=== PATIENT | female | born 1955 | race Caucasian/White ===

== ENCOUNTER 2016-05-13 11:16 | Emergency (ER) | payer BC ==
[2016-05-13] MEDS ORDERED: Potassium Chloride 20 MEQ Tab.ER PO ONE (12:58)
[2016-05-13] MEDS ORDERED: Nitrofurantoin Monohydrate/Macrocrystalline 100 MG Cap PO ONE (12:58)
--- NOTE | 2016-05-13 13:06 | EDM.PDOC ---
ED HPI Skin/Rash - General Chief Complaint: Laceration Stated Complaint: fall Time Seen by Provider: 05/13/16 11:50 Source: Reports: Patient History Limitations: Reports: No limitations - History of Present Illness INITIAL COMMENTS - FREE TEXT/NARRATIVE: Patient woke up feeling like she really had to urinate. Got out of bed and went into bathroom. Says she was a bit dizzy, and when she went to sit down on toilet she was only partway onto seat. She ended up falling off of the toilet and went forward onto the floor. Hit right cheek area in process. Does not remember if she actually passed out but does recall being suddenly on the ground. She was unable to get up off the floor by herself and called EMS for assistance. Has old bruise on top of her head. Denies any acute neuro or vision changes. Does have headache from fall. Reports similar episodes in past with dizziness, last one over a year ago. No other complaints. No recent medication/supplement changes. No recent illnesses. - Related Data Allergies Allergy/AdvReac Type Severity Reaction Status Date / Time prochlorperazine edisylate Allergy Anxiety Verified 05/13/16 11:24 [From Compazine] prochlorperazine maleate Allergy Anxiety Verified 05/13/16 11:24 [From Compazine] sertraline HCl [From Zoloft] Allergy Difficulty Verified 05/13/16 11:24 Breathing mantoux Allergy Rash Uncoded 05/13/16 11:24 Home Meds: Ambulatory Orders Medication Instructions Recorded Confirmed Acetaminophen [Tylenol Extra 500 mg PO QID PRN 05/22/13 05/13/16 Strength] Furosemide [Lasix] 20 mg PO DAILY 05/22/13 05/13/16 Gabapentin [Neurontin] 100 mg PO TID 05/22/13 05/13/16 Insulin Detemir [Levemir] 50 unit SQ BID 05/22/13 05/13/16 Methadone HCl 40 mg PO QID 05/22/13 05/13/16 Potassium Chloride [Klor-Con M20] 20 meq PO DAILY 05/22/13 05/13/16 hydrOXYzine Pamoate [Vistaril] 50 mg PO Q6H PRN 09/07/13 05/13/16 Pantoprazole 20 mg PO BEDTIME 02/08/15 05/13/16 diphenhydrAMINE HCl 25 mg PO TID PRN 02/08/15 05/13/16 [Diphenhydramine HCl] Amitriptyline [Elavil] 100 mg PO BEDTIME 05/08/15 05/13/16 Captopril [Capoten] 12.5 mg PO DAILY 05/08/15 05/13/16 Docusate Sodium [Colace] 100 mg PO BID 05/08/15 05/13/16 Insulin Aspart [NovoLOG] 0 unit SQ WITHMEALSANDBED PRN 05/08/15 05/13/16 Insulin Aspart [NovoLOG] 18 unit SQ BID 05/08/15 05/13/16 Warfarin [Coumadin] 2.5 mg PO SUTUTHSA 05/08/15 05/13/16 Warfarin [Coumadin] 5 mg PO MOWEFR 05/08/15 05/13/16 Nitrofurantoin Bates/Macrocryst 100 mg PO BID #10 cap 05/13/16 [Macrobid] Past Medical History HEENT History: Reports: Impaired vision Cardiovascular History: Reports: Heart Failure, Heart murmur, High cholesterol Respiratory History: Reports: COPD, PE, Other (see below) Gastrointestinal History: Reports: GERD Genitourinary History: Reports: Renal calculus Musculoskeletal History: Reports: Amputation, Osteoarthritis, Other (see below) Neurological History: Reports: Neuropathy, diabetic Psychiatric History: Reports: Anxiety, Depression Endocrine/Metabolic History: Reports: Diabetes, type II, Obesity/BMI 30+, Osteopenia Hematologic History: Reports: Anemia, Anticoagulation therapy, Other (see below) - Infectious Disease History Infectious Disease History: Reports: MRSA - Past Surgical History GI Surgical History: Reports: Cholecystectomy, Other (see below) Social & Family History - Family History Family Medical History: Unobtainable Cardiac: Reports: Hypertension Psychiatric: Reports: Depression Endocrine/Metabolic: Reports: Diabetes, type II, Hypothyroidism - Tobacco Use Smoking Status *Q: Never Smoker Second Hand Smoke Exposure: No - Alcohol Use Days Per Week of Alcohol Use: 0 - Recreational Drug Use Recreational Drug Use: No Recreational Drug Last Use: No caffeine use - Living Situation & Occupation Living situation: Reports: single Occupation: disabled (Secondary to fibromyalgia since 1998) ED ROS GENERAL - Review of Systems Review Of Systems: See Below Constitutional: Reports: no symptoms HEENT: Reports: Other (right cheek swollen). Denies: Dental pain, Ear pain, Eye pain, Nosebleed, Nose pain Respiratory: Reports: No Symptoms Cardiovascular: Reports: No symptoms. Denies: Chest pain GI/Abdominal: Reports: No symptoms : Reports: no symptoms. Denies: dysuria, flank pain, frequency, hematuria, pain, urgency Musculoskeletal: Reports: no symptoms. Denies: neck pain, joint swelling Skin: Reports: other (abrasion/small cut from glasses right cheek) Neurological: Reports: Dizziness (see HPI), Headache, Other (no other acute changes). Denies: Numbness, Paresthesia Psychiatric: Reports: No symptoms Hematologic/Lymphatic: Reports: no symptoms ED EXAM, SKIN/RASH Exam: See Below Exam Limited By: No limitations General Appearance: alert, WD/WN, moderate distress Eye Exam: bilateral eye: EOMI, normal inspection, PERRL, other (no noted nystagmus) Ears: normal external exam, normal canal, hearing grossly normal, normal TMs Nose: normal inspection, normal mucosa, no blood Throat/Mouth: Normal inspection, Normal lips, Normal voice, No airway compromise , Other (dentures) Head: facial swelling (right cheek), facial tenderness (right cheek) Neck: normal inspection, supple, non-tender, full range of motion Respiratory/Chest: no respiratory distress, lungs clear, normal breath sounds, no accessory muscle use, chest non-tender Cardiovascular: normal peripheral pulses, regular rate, rhythm, no edema, systolic murmur (faint) Peripheral Pulses: 2+: radial (L), radial (R) GI/Abdominal: normal bowel sounds, soft, non tender, no distention (Female) Exam: Deferred Rectal (Female) Exam: Deferred Back Exam: normal inspection. No: muscle spasm, paraspinal tenderness, vertebral tenderness Extremities: normal inspection, normal range of motion, non-tender, no pedal edema, normal capillary refill Neurological: alert, oriented, CN II-XII intact, normal cognition, no motor/ sensory deficits Psychiatric: normal affect, normal mood Skin: Warm, Dry, Normal color, Other (abrasion and very superficial skin laceration noted on face) Location, Skin: face Course - Vital Signs Last Recorded V/S: Last Vital Signs Temp 36.8 C 05/13/16 13:16 Pulse 97 05/13/16 13:16 Resp 20 05/13/16 13:16 BP 106/65 05/13/16 13:16 Pulse Ox 99 05/13/16 13:16 - Orders/Labs/Meds Orders: Active Orders 24 hr Category Date Time Status Head wo Cont [CT] Stat Exams 05/13/16 12:01 Taken CULTURE URINE [RM] Routine Lab 05/13/16 12:27 Received Labs: Laboratory Tests 05/13/16 05/13/16 05/13/16 Range/Units 12:08 12:08 12:08 WBC 7.1 (4.0-10.2) K/uL RBC 4.98 (3.77-5.09) M/uL Hgb 13.5 (11.7-15.5) g/dL Hct 40.2 (34.0-46.0) % MCV 80.7 L (84.0-98.0) fL MCH 27.1 L (28.2-33.3) pg MCHC 33.6 (31.7-36.0) g/dL RDW 12.5 (11.2-14.1) % Plt Count 251 (150-350) K/uL Neut % (Auto) 68.2 (45.0-80.0) % Lymph % (Auto) 22.9 (10.0-50.0) % Bates % (Auto) 6.5 (2.0-14.0) % Eos % (Auto) 1.8 (0.0-5.0) % Baso % (Auto) 0.6 (0.0-2.0) % Neut # 4.83 (1.40-7.00) K/uL Lymph # 1.62 (0.50-3.50) K/uL Bates # 0.46 (0.00-1.00) K/uL Eos # 0.13 (0.00-0.50) K/uL Baso # 0.04 (0.00-0.20) K/uL PT 47.1 H D (9.8-11.7) SEC INR 4.1 Sodium 138 (136-145) mmol/L Potassium 3.4 L (3.5-5.1) mmol/L Chloride 96 L (98-107) mmol/L Carbon Dioxide 33.1 H (21.0-32.0) mmol/L BUN 35 H (7-18) mg/dL Creatinine 1.02 (0.51-1.17) mg/dL Est Cr Clr Drug Dosing 57.04 mL/min Estimated GFR (MDRD) 55 mL/min Glucose 187 H (74-106) mg/dL Calcium 9.9 (8.5-10.1) mg/dL Total Bilirubin 0.3 (0.2-1.0) mg/dL AST 12 L (15-37) U/L ALT 23 (12-78) U/L Alkaline Phosphatase 120 H (46-116) IU/L Total Protein 8.2 (6.4-8.2) g/dL Albumin 3.6 (3.4-5.0) g/dL Specimen Type Urine Color Urine Appearance Urine pH (5.0-9.0) Ur Specific [place] (1.005-1.030) Urine Protein (NEGATIVE) mg/dL Urine Glucose (UA) (NEGATIVE) mg/dL Urine Ketones (NEGATIVE) mg/dL Urine Occult Blood (NEGATIVE) Urine Nitrite (NEGATIVE) Urine Bilirubin (NEGATIVE) Urine Urobilinogen (0.2-1.0) E.U./dL Ur Leukocyte Esterase (NEGATIVE) Urine RBC /HPF Urine WBC /HPF Ur Epithelial Cells /LPF Urine Bacteria (NONE TO FEW) /HPF Urine Yeast (NEGATIVE) /HPF 05/13/16 Range/Units 12:27 WBC (4.0-10.2) K/uL RBC (3.77-5.09) M/uL Hgb (11.7-15.5) g/dL Hct (34.0-46.0) % MCV (84.0-98.0) fL MCH (28.2-33.3) pg MCHC (31.7-36.0) g/dL RDW (11.2-14.1) % Plt Count (150-350) K/uL Neut % (Auto) (45.0-80.0) % Lymph % (Auto) (10.0-50.0) % Bates % (Auto) (2.0-14.0) % Eos % (Auto) (0.0-5.0) % Baso % (Auto) (0.0-2.0) % Neut # (1.40-7.00) K/uL Lymph # (0.50-3.50) K/uL Bates # (0.00-1.00) K/uL Eos # (0.00-0.50) K/uL Baso # (0.00-0.20) K/uL PT (9.8-11.7) SEC INR Sodium (136-145) mmol/L Potassium (3.5-5.1) mmol/L Chloride (98-107) mmol/L Carbon Dioxide (21.0-32.0) mmol/L BUN (7-18) mg/dL Creatinine (0.51-1.17) mg/dL Est Cr Clr Drug Dosing mL/min Estimated GFR (MDRD) mL/min Glucose (74-106) mg/dL Calcium (8.5-10.1) mg/dL Total Bilirubin (0.2-1.0) mg/dL AST (15-37) U/L ALT (12-78) U/L Alkaline Phosphatase (46-116) IU/L Total Protein (6.4-8.2) g/dL Albumin (3.4-5.0) g/dL Specimen Type Urinvoid Urine Color Yellow Urine Appearance Slightly cloudy Urine pH 7.0 (5.0-9.0) Ur Specific [place] 1.010 (1.005-1.030) Urine Protein Negative (NEGATIVE) mg/dL Urine Glucose (UA) 500 H (NEGATIVE) mg/dL Urine Ketones Negative (NEGATIVE) mg/dL Urine Occult Blood Small H (NEGATIVE) Urine Nitrite Negative (NEGATIVE) Urine Bilirubin Negative (NEGATIVE) Urine Urobilinogen 0.2 (0.2-1.0) E.U./dL Ur Leukocyte Esterase Trace H (NEGATIVE) Urine RBC 5-10 H /HPF Urine WBC 10-20 H /HPF Ur Epithelial Cells Moderate H /LPF Urine Bacteria Few (NONE TO FEW) /HPF Urine Yeast Few H (NEGATIVE) /HPF Meds: Medications Discontinued Medications Generic Name Dose Route Start Last Admin Trade Name Freq PRN Reason Stop Dose Admin Nitrofurantoin Macrocrystals 100 mg 05/13/16 12:58 05/13/16 13:14 Macrobid PO 05/13/16 12:59 100 mg ONETIME ONE Administration Potassium Chloride 40 meq 05/13/16 12:58 05/13/16 13:14 Klor-Con M20 PO 05/13/16 12:59 40 meq ONETIME ONE Administration - Radiology Interpretation Free Text/Narrative:: CT of head read as unremarkable per radiology. - Re-Assessments/Exams Free Text/Narrative Re-Assessment/Exam: 05/13/16 14:11 INR noted to be 4.1 K 3.4 Glu 187 WBC/platelets/Hgb overall unremarkable BUN 35, Creatinine normal UA showed WBC 10-20. Urine culture ordered. Patient given single dose Macrobid as well as KCl. CT of head unremarkable for fracture or bleed. No suturing required. Will treat patient for UTI. Uncertain if dizziness sensation linked to UTI. Patient has had issues on/off with lightheaded sensation in past. She feels safe and wishes to go home. Discussed with her that she can try over-the- counter Meclizine. Will have her hold tonight's dose of Warfarin. She is to use 2.5 mg as her daily dose starting tomorrow and is to follow up Wednesday at her clinic for recheck. Departure - Departure Time of Disposition: 13:44 Disposition: Home, Self-Care 01 Condition: good Clinical Impression: Contusion, Abrasion, Broken skin, Dizziness Fall Qualifiers: Encounter type: initial encounter Qualified Code(s): W19.XXXA - Unspecified fall, initial encounter Head injury, acute Qualifiers: Encounter type: initial encounter Qualified Code(s): S09.90XA - Unspecified injury of head, initial encounter UTI (urinary tract infection) Qualifiers: Urinary tract infection type: acute cystitis Hematuria presence: without hematuria Qualified Code(s): N30.00 - Acute cystitis without hematuria Prescriptions: Nitrofurantoin Bates/Macrocryst [Macrobid] 100 mg PO BID #10 cap Instructions: Facial or Scalp Contusion, [id number], Concussion, Adult, Easy- to-Read Referrals: Santino Werner MD [Primary Care Provider] - Forms: ED Department Discharge Additional Instructions: Follow up as needed if you have any problems. Hold Warfarin tonight. Take 2.5mg daily starting tomorrow and continue at this dose until you have INR rechecked next Wednesday at the clinic. - My Orders Last 24 Hours: My Active Orders 05/13/16 12:01 Head wo Cont [CT] Stat 05/13/16 12:27 CULTURE URINE [RM] Routine - Assessment/Plan Last 24 Hours: My Active Orders 05/13/16 12:01 Head wo Cont [CT] Stat 05/13/16 12:27 CULTURE URINE [RM] Routine
[2016-05-13 13:18] VITALS: BP 106/65
== END 2016-05-13 14:30 | disposition home or self-care (01) ==
LOC: LL.ED 11:16
DX: S09.90XA Unspecified injury of head, initial encounter (principal); N30.00 Acute cystitis without hematuria; S01.411A Laceration without foreign body of right cheek and temporomandibular area, initial encounter; J44.9 Chronic obstructive pulmonary disease, unspecified; K21.9 Gastro-esophageal reflux disease without esophagitis; F41.9 Anxiety disorder, unspecified; F32.9 Major depressive disorder, single episode, unspecified; E11.9 Type 2 diabetes mellitus without complications; E66.9 Obesity, unspecified; Z88.8 Allergy status to other drugs, medicaments and biological substances; Z79.4 Long term (current) use of insulin; Z79.01 Long term (current) use of anticoagulants; W19.XXXA Unspecified fall, initial encounter
CPT/HCPCS: 36415; 70450; 80053; 81001; 85025; 85610; 87086; 99284; A9270

== ENCOUNTER 2017-02-18 15:37 | Emergency (ER) | payer BC ==
--- NOTE | 2017-02-18 15:47 | EDM.PDOC ---
ED HPI GENERAL MEDICAL PROBLEM - General Chief Complaint: Chest Pain Stated Complaint: chest pain Time Seen by Provider: 02/18/17 15:45 Source of Information: Reports: Patient, EMS, Old Records. Denies: EMS Notes Reviewed (Not available at time of emergency room evaluation) History Limitations: Reports: No Limitations - History of Present Illness INITIAL COMMENTS - FREE TEXT/NARRATIVE: The patient was brought to the emergency room via ambulance with emissions engineer accompaniment for evaluation of 12/08 retrosternal chest pressure with radiation to the left arm with symptoms starting at about 10 AM this morning. The patient did not take any medications for her symptoms. She does have a known history of heart disease. Licensed Reactor Operator did give 2 sublingual nitroglycerin tablets with no relief of her chest discomfort with additional 4 baby aspirin chew and swallow, saline lock placed and O2 therapy given at 4 L/m by nasal cannula during transport. Note the patient did not have her dentures and was unable to chew the aspirin with 3 aspirins noticed in her emesis, which occurred immediately upon arrival to this emergency room. Additional symptoms include some dizziness, nausea, and diaphoresis. No recent history of abdominal pain, heartburn, diarrhea, melena, gross hematochezia, or any food intolerance, including fatty foods, etc. with normal bowel movement earlier today. The patient also denies any recent fever, cough, wheezing, dyspnea, etc.. Onset: Today, Sudden Onset Date: 02/18/17 Onset Time: 10:00 Duration: Constant Location: Reports: Chest, Upper Extremity, Left, Radiates to (As above). Denies : Head, Face, Neck, Abdomen, Back, Pelvis, Upper Extremity, Right Quality: Reports: Pressure, Same as Previous Episode Severity: Severe Improves with: Reports: None Worsens with: Reports: None Context: Reports: Other (As above) Associated Symptoms: Reports: Chest Pain, Cough, Diaphoresis, Nausea/Vomiting. Denies: Confusion, Fever/Chills, Headaches, Loss of Appetite, Malaise, Shortness of Breath, Syncope, Weakness Treatments NURSING CONSULTANT: Reports: Aspirin, IV/IO, Nitroglycerin, Oxygen Middle Chest Pain Score (Numeric/FACES): 10 - Related Data Allergies Allergy/AdvReac Type Severity Reaction Status Date / Time prochlorperazine edisylate Allergy Anxiety Verified 02/18/17 16:41 [From Compazine] prochlorperazine maleate Allergy Anxiety Verified 02/18/17 16:41 [From Compazine] sertraline HCl [From Zoloft] Allergy Difficulty Verified 02/18/17 16:41 Breathing mantoux Allergy Rash Uncoded 02/18/17 16:41 Home Meds: Home Meds Acetaminophen [Tylenol Extra Strength] 500 mg PO QID PRN 05/22/13 [History] Furosemide [Lasix] 10 mg PO DAILY PRN 05/22/13 [History] Insulin Detemir [Levemir] 25 unit SQ BID 05/22/13 [History] Methadone HCl 40 mg PO QID 05/22/13 [History] Potassium Chloride [Klor-Con M20] 20 meq PO DAILY 05/22/13 [History] hydrOXYzine Pamoate [Vistaril] 50 mg PO Q6H PRN 09/07/13 [History] Pantoprazole 40 mg PO DAILY 02/08/15 [History] diphenhydrAMINE HCl [Diphenhydramine HCl] 25 mg PO TID PRN 02/08/15 [History] Amitriptyline [Elavil] 100 mg PO BEDTIME 05/08/15 [History] Docusate Sodium [Colace] 100 mg PO BID 05/08/15 [History] Insulin Aspart [NovoLOG] 5 unit SQ BID 05/08/15 [History] Warfarin [Coumadin] 2.5 mg PO MOWEFR 05/08/15 [History] Warfarin [Coumadin] 5 mg PO SUTUTHSA 05/08/15 [History] Past Medical History HEENT History: Reports: Allergic Rhinitis, Cataract, Impaired Vision, Other ( See Below). Denies: Glaucoma, Hard of Hearing, Macular Degeneration Other HEENT History: Patient wears glasses; history of cataracts is no surgery to this point Cardiovascular History: Reports: Arrhythmia, Blood Clots/VTE/DVT, CAD, Heart Failure, Heart Murmur, High Cholesterol, Other (See Below). Denies: Afib, Aneurysm, OK, PVD, Syncope Other Cardiovascular History: Complete right bundle branch block, PVCs; severe left atrial enlargement with grade 1 diastolic dysfunction by echocardiogram with additional decreased ejection fraction of 45-50% and history of CHF; dyslipidemia; mild mitral valve insufficiency and aortic valve insufficiency by echocardiogram with additional moderate aortic valve stenosis; postoperative DVT of the right leg in December 2009 after panniculectomy with additional left- sided PE on 12/23/12 with current Coumadin therapy; previous history of positive antiphospholipid titer; Respiratory History: Reports: Bronchitis, Recurrent, COPD, Intubation, Previous , PE, Other (See Below). Denies: Asthma, Intubation, Difficult, Pneumothorax, Pulmonary Fibrosis, Sleep Apnea Other Respiratory History: PE as above; multiple benign bilateral pulmonary nodules by serial CT scans Gastrointestinal History: Reports: Cholelithiasis, Chronic Constipation, Diverticulosis, GERD. Denies: Celiac Disease, Chronic Diarrhea, Colon Polyp, Fecal Incontinence, Gastritis, GI Bleed, Hepatitis, Hiatal Hernia, Inflammatory Bowel Disease, Irritable Bowel Syndrome, Jaundice, Pancreatitis, PUD Genitourinary History: Reports: Acute Renal Failure, Renal Calculus, Urinary Incontinence, UTI, Recurrent, Other (See Below). 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 Denies: Dysfunctional Uterine Bleeding, Endometriosis, , Spontaneous : 0 Para: 0 LMP (Approximate): Menopausal (Menopause at age 52; large 6 cm uterine fibroid by ultrasound) Musculoskeletal History: Reports: Amputation, Arthritis, Back Pain, Chronic, Fracture, Fibromyalgia, Neck Pain, Chronic, Osteoarthritis, Osteoporosis, SLE, Other (See Below). Denies: Gout, RA Other Musculoskeletal History: Fracture of digit #1 of the right foot; amputation of the toe as below Neurological History: Reports: Migraines, Neuropathy, Diabetic, Neuropathy, Peripheral, Other (See Below). Denies: Cerebral Aneurysms, Concussion, CVA, Headaches, Chronic, Head Trauma, MS, Parkinson's, Seizure, TIA Other Neuro History: Migraines as a child Psychiatric History: Reports: Anxiety, Depression. Denies: Abuse, Victim of, ADD, ADHD, Addiction, Alzheimers Disease, Dementia, Psych Hospitalization(s), PTSD, Suicide Attempt, Suicidal Ideation Endocrine/Metabolic History: Reports: Diabetes, Type II, IDDM, Multinodular Thyroid, Obesity/BMI 30+, Osteopenia. Denies: Diabetes, Type I, Hypothyroidism Hematologic History: Reports: Anemia, Anticoagulation Therapy, Blood Transfusion (s), Other (See Below). Denies: Iron Deficiency Immunologic History: Reports: None, SLE. Denies: AIDS, HIV Oncologic (Cancer) History: Reports: None. Denies: Basal Cell Carcinoma, Breast , Cervix, Colon, Esophageal, Hodgkin's Lymphoma, Leukemia, Lymphoma, Malignant Melanoma, Non-Hodgkin's Lymphoma, Squamous Cell Carcinoma, Uterine Dermatologic History: Reports: None, Venous Stasis Dermatitis. Denies: Eczema, Psoriasis - Infectious Disease History Infectious Disease History: Reports: MRSA - Past Surgical History Head Surgeries/Procedures: Reports: None HEENT Surgical History: Reports: Oral Surgery, Other (See Below). Denies: Adenoidectomy, Cataract Surgery, Eye Surgery, Laser Surgery, LASIK, Myringotomy w Tube(s), Naso-Sinus Surgery, Tonsillectomy Other HEENT Surgeries/Procedures: Complete teeth extraction in 2005 with previous wisdom teeth extraction in her 20s Cardiovascular Surgical History: Reports: None. Denies: Coronary Artery Bypass , Coronary Artery Stent, Varicose, Vascular Surgery Respiratory Surgical History: Reports: None. Denies: Thoracentesis GI Surgical History: Reports: Cholecystectomy, Colonoscopy, EGD, Other (See Below). Denies: Appendectomy, Bariatric Procedure, Hernia, Abdominal, Hernia, Inguinal, Hernia Repair/Other, Polypectomy Other GI Surgeries/Procedures: Laparoscopic cholecystectomy in 1998; panniculectomy in December 2009; colonoscopy in 2008 with EGD in the Female Surgical History: Reports: Cystoscopy, Lithotripsy/ESWL, Other (See Below). Denies: Breast Biopsy, D&C, Hysterectomy, Salpingo-Oophorectomy, Tubal Ligation Other Female Surgeries/Procedures: Multiple previous bilateral lithotripsies with with last procedure on the right side in 1998; cystourethroscopy on 07/12/12 Endocrine Surgical History: Reports: None. Denies: Thyroid Biopsy Neurological Surgical History: Reports: None. Denies: C-Spine, Discectomy, Laminectomy, Lumbar Spine, Spinal Fusion, Vertebroplasty Musculoskeletal Surgical History: Reports: Arthroscopic Knee, Arthroscopic Procedure, Other (See Below). 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 Denies: Biopsy of Breast Dermatological Surgical History: Reports: Other (See Below) Other Dermatological Surgeries/Procedures: Left back lipoma excision 2007 - Past Imaging History Past Imaging History: Reports: Angiography (Negative heart catheterization at [facility] in [place] December 2012 by patient history), CAT Scan (Last CT of the brain on 05/13/16 with previous evaluation on 09/09/10; multiple previous CTAs of the chest using PE protocol with last evaluation on 04/20/16 with previous evaluations on 04/12/15, 02/08/15, 05/23/13, 01/01/13 and 12/24/12; CT of the abdomen and pelvis with contrast on 04/20/16, 02/08/15, 05/23/13, and 12/07/12 ; CT of the chest on 07/11/14), DEXA Scan (08/01/14), Mammogram (Last mammogram on 08/28/15), MRI (MRI of the lumbar spine on 04/15/15, 07/16/14 and 05/07/10), Stress Testing (Cardiolite stress test on 12/15/12 with ejection fraction of 65%), Ultrasound (Thyroid ultrasound on 04/20/16 and 01/30/15; renal ultrasound on ), Venous Doppler (Last venous Doppler study of Lower extremities bilaterally on 01/30/15 with previous evaluation of the right leg on 02/13/10) Social & Family History - Family History Family Medical History: Unobtainable Cardiac: Reports: CAD, High Cholesterol, Hypertension, OK, Stent, Other (See Below). Denies: Afib, Aneurysm, Arrhythmia, Blood Clots/VTE/DVT Other Cardiac Family History: Maternal grandfather with fatal OK at age 62; paternal grandfather with fatal OK at age 72; father with PTCA/stent at age 83 without OK; hyperlipidemia in father; mother with hypertension Respiratory: Denies: Asthma, COPD GI: Reports: PUD, Other (See Below). Denies: Celiac Disease, GERD, GI bleed, Inflammatory Bowel Disease, Irritable Bowel Syndrome Other GI Family History: Mother with ischemic colitis and peptic ulcer disease secondary to NSAIDs : Denies: Renal Calculus, Renal Disease/Insufficiency OBGYN: Reports: None. Denies: Endometriosis, Recurrent Spontaneous Musculoskeletal: Reports: Fibromyalgia, Gout, Other (See Below). Denies: RA, SLE Other Musculoskeletal Family History: Maternal grandmother with gout; mother and sister with fibromyalgia Neurological: Reports: Alzheimers Disease, Dementia, TIA, Other (See Below). Denies: CVA, Parkinson's, Seizure Other Neurological Family History: Father with TIAs; mother with borderline organic brain syndrome Psychiatric: Reports: Anxiety, Depression, Other (See Below) Other Psychiatric Family History: Mother with anxiety depression disorder Endocrine/Metabolic: Reports: Diabetes, type II, Hypothyroidism, Other (See Below) Other Endocrine/Metabolic Family History: Sister with IDDM, brother with AODM controlled with diet, father with hypothyroidism Hematologic: Reports: None Immunologic: Reports: None. Denies: AIDS, HIV, SLE Dermatologic: Reports: None. Denies: Eczema, Psoriasis Oncologic: Reports: Skin, Other (See Below). Denies: Breast, Cervix, Hodgkin's Lymphoma, Leukemia, Lymphoma, Metastatic, Non-Hodgkin's Lymphoma, Thyroid, Uterine Other Oncologic Family History: Father and paternal uncle with unknown type of skin cancer; oral cancer in her niece possibly secondary to tobacco fatal at age 31 - Tobacco Use Smoking Status *Q: Never Smoker Smoking Cessation Information Provided To Patient: No Second Hand Smoke Exposure: No Second Hand Smoke Education Provided: No - Alcohol Use Alcohol Use History: No Days Per Week of Alcohol Use: 0 (No previous DWIs, problems with alcohol abuse, etc.) Number of Drinks Per Day: 0 Total Drinks Per Week: 0 Alcohol Use in Last Twelve Months: No - Recreational Drug Use Recreational Drug Use: No Drug Use in Last 12 Months: No Recreational Drug Type: Denies: Amphetamines (Speed), Cocaine, Heroin, Inhalants (Glues, Solvents, Aerosols), LSD (Acid), Marijuana/Hashish, Methamphetamine, Morphine Recreational Drug Last Use: No caffeine use - Living Situation & Occupation Living situation: Reports: Single, Alone Occupation: Disabled (Secondary to fibromyalgia since 1998) ED [facility] - Review of Systems Review Of Systems: See Below Constitutional: Reports: Diaphoresis, Weight Loss (Intentional weight loss during the last year with 100 pound weight loss ). Denies: Fever, Chills, Malaise, Weakness, Night Sweats, Decreased Appetite, Weight Gain HEENT: Reports: Glasses. Denies: Dental Pain, Ear Pain, Eye Pain, Hearing Loss , Rhinitis, Sinus Problem, Throat Pain, Throat Swelling, Vertigo, Vision Change Respiratory: Reports: No Symptoms. Denies: Shortness of Breath, Wheezing, Pleuritic Chest Pain, Cough, Sputum, Hemoptysis Cardiovascular: Reports: Chest Pain, Lightheadedness. Denies: Blood Pressure Problem, Claudication, Dyspnea on Exertion, Edema, Orthopnea, Palpitations, Syncope Endocrine: Reports: No Symptoms, High Glucose (She states that her Accu-Cheks have been averaging in the 100s with twice a day Accu-Cheks recently). Denies: Fatigue GI/Abdominal: Reports: Nausea, Vomiting. Denies: Abdominal Pain, Anorexia, Black Stool, Bloody Stool, Constipation, Diarrhea, Decreased Appetite, Difficulty Swallowing, Distension, Flatus, Hematemesis, Hematochezia, Melena, Mucous in Stool, Stool Incontinence : Reports: No Symptoms. Denies: Discharge, Dysuria, Flank Pain, Hematuria, Urgency, Urinary Retention Musculoskeletal: Reports: No Symptoms. Denies: Neck Pain, Shoulder Pain, Arm Pain, Back Pain, Leg Pain, Joint Pain Skin: Reports: Diaphoresis, Bruising (Stable with patient on Coumadin). Denies : Wound Neurological: Reports: Dizziness, Numbness (Stable by history), Paresthesia (As above), Tingling (Stable by history), Difficulty Walking (Stable with the patient normally uses a cane). Denies: Confusion, Headache, Seizure, Syncope, Weakness Psychiatric: Reports: No Symptoms. Denies: Agitation, Anxiety, Confusion, Depression, Hallucinations Hematologic/Lymphatic: Reports: No Symptoms Immunologic: Reports: No Symptoms ED EXAM, GENERAL - Physical Exam Exam: See Below Exam Limited By: No Limitations General Appearance: Alert, WD/WN, Anxious (Mild), Mild Distress (Secondary to symptoms) Eye Exam: Bilateral Eye: EOMI, Normal Inspection (No nystagmus), PERRL Ears: Normal External Exam, Normal Canal, Hearing Grossly Normal, Normal TMs Nose: Normal Inspection, Normal Mucosa, No Blood Throat/Mouth: Normal Lips, Normal Oropharynx, Normal Voice, No Airway Compromise. No: Normal Teeth (Complete absent dentition with patient not having her dentures), Dysphagia, Perioral Cyanosis Head: Atraumatic, Normocephalic. No: Facial Swelling, Facial Tenderness, Sinus Tenderness Neck: Supple, Non-Tender, Full Range of Motion, Carotid Bruit (Moderate bilateral carotid bruits versus transmitted heart sounds). No: Lymphadenopathy (L), Lymphadenopathy (R), Thyromegaly Respiratory/Chest: No Respiratory Distress, No Accessory Muscle Use, Chest Non- Tender, Rales (Mild bilateral basilar). No: Pleural Rub, Retractions Cardiovascular: Normal Peripheral Pulses, No Edema, No Gallop, No JVD, No Rub, Tachycardia (Mild on arrival with regular rhythm), Systolic Murmur (3/6 YUNIOR of the aortic valve radiation to the mitral and axillary regions with known history of mitral valve insufficiency). No: Diastolic Murmur (Not appreciated) , Gallop/S3, Gallop/S4 Peripheral Pulses: 1+: Dorsalis Pedis (L), Dorsalis Pedis (R), 2+: Radial (L), Radial (R) GI/Abdominal: Normal Bowel Sounds, Soft, Non-Tender, No Organomegaly, No Distention, No Abnormal Bruit, No Mass, Pelvis Stable, Other (Mildly obese). No : Guarding (Female) Exam: Deferred Rectal (Female) Exam: Deferred Back Exam: Normal Inspection, Full Range of Motion, Other (Moderate kyphosis). No: CVA Tenderness (L), CVA Tenderness (R), Muscle Spasm Extremities: Normal Inspection, Normal Range of Motion, Non-Tender, No Pedal Edema, Normal Capillary Refill, Other (Moderate venous stasis dermatitis). No: Erickson's Sign Neurological: Alert, Oriented, CN II-XII Intact, Normal Cognition, Normal Reflexes (Negative Babinski's), No Motor/Sensory Deficits Psychiatric: Anxious (Mild), Depressed Mood (Mild with adequate eye contact) Skin Exam: Warm, Dry, Intact, Normal Color, No Rash, Ecchymosis (Occasional stable by history). No: Diaphoretic, Petechiae, Wound/Incision Lymphatic: No Adenopathy EKG INTERPRETATION EKG Date: 02/18/17 Time: 15:48 Rhythm: NSR (Mild sinus tachycardia) Rate (Beats/Min): 103 [place]: Normal (Stented left cardiac axis) P-Wave: Enlarged (Diffuse biphasic P waves) QRS: RBBB (QRS interval 0.12 seconds representing a complete right bundle branch block/bifascicular bundle-branch block) ST-T: Other (T-wave inversions in leads V1 through V3 with new T-wave inversions in leads V2 and V3) QT: Normal IN/PQ Interval: IN interval of 0.20 seconds representing a first degree AV block Comparison: Change From Previous EKG (10/04/13) EKG Interpretation Comments: 1. New anterior wall cardiac ischemia 2. New borderline first-degree AV block Course - Vital Signs Last Recorded V/S: Last Vital Signs Temp 36.8 C 02/18/17 15:39 Pulse 88 02/18/17 18:20 Resp 16 02/18/17 18:20 BP 158/89 H 02/18/17 18:20 Pulse Ox 100 02/18/17 18:20 Vital Signs - 24 hr 02/18/17 02/18/17 02/18/17 15:39 15:55 16:02 Temperature [ 36.8 C Temporal] Pulse, 97 Peripheral Pulse, 105 H 108 H Peripheral [ Apical] Respiratory 12 16 Rate Blood Pressure 114/65 Blood Pressure 123/78 123/78 [Right Upper Arm] O2 Sat by Pulse 94 L 94 L Oximetry 02/18/17 02/18/17 02/18/17 16:11 16:26 16:41 Temperature [ Temporal] Pulse, Peripheral Pulse, 90 83 84 Peripheral [ Apical] Respiratory 14 15 16 Rate Blood Pressure Blood Pressure 145/84 H 148/76 H 154/79 H [Right Upper Arm] O2 Sat by Pulse 100 100 100 Oximetry 02/18/17 02/18/17 02/18/17 16:56 17:11 17:26 Temperature [ Temporal] Pulse, Peripheral Pulse, 88 88 87 Peripheral [ Apical] Respiratory 15 16 16 Rate Blood Pressure Blood Pressure 134/75 134/75 152/80 H [Right Upper Arm] O2 Sat by Pulse 100 100 100 Oximetry 02/18/17 02/18/17 02/18/17 17:41 17:56 18:20 Temperature [ Temporal] Pulse, Peripheral Pulse, 86 88 88 Peripheral [ Apical] Respiratory 16 16 16 Rate Blood Pressure Blood Pressure 146/84 H 150/83 H 158/89 H [Right Upper Arm] O2 Sat by Pulse 100 100 100 Oximetry - Orders/Labs/Meds Orders: Active Orders 24 hr Category Date Time Status Cardiac Monitoring [RC] . DIRECTED Care 02/18/17 15:54 Active EKG Documentation Completion [RC] ASDIRECTED Care 02/18/17 15:54 Active Oxygen Therapy, ED [RC] CONTINUOUS Care 02/18/17 15:54 Active Peripheral IV Care [RC] . DIRECTED Care 02/18/17 15:54 Active Pulse Oximetry [RC] CONTINUOUS Care 02/18/17 15:54 Active Up With Assistance [RC] PFP Care 02/18/17 15:54 Active Vital Signs [RC] PFP Care 02/18/17 15:54 Active Nothing per Oral Now Diet [DIET] Diet 02/18/17 Breakfast Active Chest 1V Frontal [CR] Stat Exams 02/18/17 15:48 Taken Nitroglycerin/D5W [Nitroglycerin 25 MG/D5W 250 ML] Med 02/18/17 16:30 Active 25 mg in 250 ml IV TITRATE Sodium Chloride 0.9% [Normal Saline] 1,000 ml Med 02/18/17 16:30 Active IV ASDIRECTED Sodium Chloride 0.9% [Saline Flush] Med 02/18/17 15:54 Active 10 ml FLUSH ASDIRECTED PRN Obtain Past Medical Record [OM.PC] Urgent Oth 02/18/17 15:54 Active Peripheral IV Insertion Adult [OM.PC] Stat Oth 02/18/17 15:54 Ordered Resuscitation Status Stat Resus Stat 02/18/17 15:54 Ordered Medication Orders Nitroglycerin/Dextrose (Nitroglycerin 25 Mg/D5w 250 Ml) 25 mg in 250 mls @ 6 mls/hr IV TITRATE ALEYDA PRN Reason: 10 MCG/MIN Last Admin: 02/18/17 16:41 Dose: 10 mcg/min, 6 mls/hr Sodium Chloride (Normal Saline) 1,000 mls @ 30 mls/hr IV ASDIRECTED ALEYDA Last Admin: 02/18/17 16:40 Dose: 30 mls/hr Sodium Chloride (Saline Flush) 10 ml FLUSH ASDIRECTED PRN PRN Reason: Keep Vein Open Last Admin: 02/18/17 17:33 Dose: 10 ml Admin: 02/18/17 16:09 Dose: 10 ml Admin: 02/18/17 16:01 Dose: 10 ml Labs: Laboratory Tests 02/18/17 02/18/17 02/18/17 Range/Units 16:15 16:15 16:15 WBC 5.8 (4.0-10.2) K/uL RBC 4.60 (3.77-5.09) M/uL Hgb 13.0 (11.7-15.5) g/dL Hct 37.8 (34.0-46.0) % MCV 82.2 L (84.0-98.0) fL MCH 28.3 (28.2-33.3) pg MCHC 34.4 (31.7-36.0) g/dL RDW 12.7 (11.2-14.1) % Plt Count 221 (150-350) K/uL Neut % (Auto) 85.0 H (45.0-80.0) % Lymph % (Auto) 12.2 (10.0-50.0) % [place] % (Auto) 2.1 (2.0-14.0) % Eos % (Auto) 0.5 (0.0-5.0) % Baso % (Auto) 0.2 (0.0-2.0) % Neut # (Auto) 4.96 (1.40-7.00) K/uL Lymph # (Auto) 0.71 (0.50-3.50) K/uL [place] # (Auto) 0.12 (0.00-1.00) K/uL Eos # (Auto) 0.03 (0.00-0.50) K/uL Baso # (Auto) 0.01 (0.00-0.20) K/uL PT 73.2 H D (9.8-11.7) SEC INR 6.5 H* APTT 53.4 H (22.1-29.8) SEC D-Dimer, Quantitative < 100 (0-400) ng/mL Sodium (136-145) mmol/L Potassium (3.5-5.1) mmol/L Chloride (98-107) mmol/L Carbon Dioxide (21.0-32.0) mmol/L BUN (7-18) mg/dL Creatinine (0.51-1.17) mg/dL Est Cr Clr Drug Dosing mL/min Estimated GFR (MDRD) mL/min Glucose (74-106) mg/dL Lactic Acid (0.4-2.0) mmol/L Uric Acid (2.6-7.2) mg/dL Calcium (8.5-10.1) mg/dL Magnesium (1.8-2.4) mg/dL Total Bilirubin (0.2-1.0) mg/dL AST (15-37) U/L ALT (12-78) U/L Alkaline Phosphatase (46-116) IU/L Creatine Kinase (26-308) U/L Creatine Kinase Index (0.0-2.5) % CK-MB (CK-2) (0.00-3.60) ng/mL Troponin I (0.000-0.056) ng/mL NT-Pro-B Natriuret Pep (0-125) pg/mL Total Protein (6.4-8.2) g/dL Albumin (3.4-5.0) g/dL Amylase (25-115) U/L Lipase (73-393) U/L TSH, Ultra Sensitive (0.358-3.740) mIU/mL 02/18/17 02/18/17 02/18/17 Range/Units 16:15 16:15 16:15 WBC (4.0-10.2) K/uL RBC (3.77-5.09) M/uL Hgb (11.7-15.5) g/dL Hct (34.0-46.0) % MCV (84.0-98.0) fL MCH (28.2-33.3) pg MCHC (31.7-36.0) g/dL RDW (11.2-14.1) % Plt Count (150-350) K/uL Neut % (Auto) (45.0-80.0) % Lymph % (Auto) (10.0-50.0) % [place] % (Auto) (2.0-14.0) % Eos % (Auto) (0.0-5.0) % Baso % (Auto) (0.0-2.0) % Neut # (Auto) (1.40-7.00) K/uL Lymph # (Auto) (0.50-3.50) K/uL [place] # (Auto) (0.00-1.00) K/uL Eos # (Auto) (0.00-0.50) K/uL Baso # (Auto) (0.00-0.20) K/uL PT (9.8-11.7) SEC INR APTT (22.1-29.8) SEC D-Dimer, Quantitative (0-400) ng/mL Sodium 137 (136-145) mmol/L Potassium 4.2 (3.5-5.1) mmol/L Chloride 99 (98-107) mmol/L Carbon Dioxide 28.1 (21.0-32.0) mmol/L BUN 22 H (7-18) mg/dL Creatinine 0.72 (0.51-1.17) mg/dL Est Cr Clr Drug Dosing 79.79 mL/min Estimated GFR (MDRD) > 60 mL/min Glucose 398 H* (74-106) mg/dL Lactic Acid 1.3 (0.4-2.0) mmol/L Uric Acid 4.4 (2.6-7.2) mg/dL Calcium 9.4 (8.5-10.1) mg/dL Magnesium 1.7 L (1.8-2.4) mg/dL Total Bilirubin 0.4 (0.2-1.0) mg/dL AST 11 L (15-37) U/L ALT 16 (12-78) U/L Alkaline Phosphatase 119 H (46-116) IU/L Creatine Kinase 34 (26-308) U/L Creatine Kinase Index 2.9 H (0.0-2.5) % CK-MB (CK-2) 1.00 (0.00-3.60) ng/mL Troponin I 0.009 (0.000-0.056) ng/mL NT-Pro-B Natriuret Pep 365 H (0-125) pg/mL Total Protein 7.3 (6.4-8.2) g/dL Albumin 3.4 (3.4-5.0) g/dL Amylase 32 (25-115) U/L Lipase 40 L (73-393) U/L TSH, Ultra Sensitive 0.758 (0.358-3.740) mIU/mL Microbiology 02/18/17 16:00 Gastric Occult Blood - Final Gastric Fluid NEGATIVE OCCULT BLOOD PH of 4 in gastric occult Meds: Medications Generic Name Dose Route Start Last Admin Trade Name Freq PRN Reason Stop Dose Admin Nitroglycerin/Dextrose 25 mg in 250 mls @ 6 mls/hr 02/18/17 16:30 02/18/17 16 :41 Nitroglycerin 25 Mg/D5w 250 Ml IV 10 mcg/min TITRATE ALEYDA 6 mls/hr 10 MCG/MIN Administration Sodium Chloride 1,000 mls @ 30 mls/hr 02/18/17 16:30 02/18/17 16:40 Normal Saline IV 30 mls/hr ASDIRECTED ALEYDA Administration Sodium Chloride 10 ml 02/18/17 15:54 02/18/17 17:33 Saline Flush FLUSH 10 ml ASDIRECTED PRN Administration Keep Vein Open Discontinued Medications Generic Name Dose Route Start Last Admin Trade Name Freq PRN Reason Stop Dose Admin Famotidine 40 mg 02/18/17 15:54 02/18/17 16:01 Pepcid IVPUSH 02/18/17 15:55 40 mg ONETIME ONE Administration Fentanyl 50 mcg 02/18/17 15:56 02/18/17 16:03 Sublimaze IVPUSH 02/18/17 15:57 50 mcg ONETIME ONE Administration Fentanyl 50 mcg 02/18/17 17:19 02/18/17 17:33 Sublimaze IVPUSH 02/18/17 17:20 50 mcg ONETIME ONE Administration Metoprolol Tartrate 2.5 mg 02/18/17 15:54 02/18/17 16:02 Lopressor IVPUSH 02/18/17 15:55 2.5 mg ONETIME ONE Administration Ondansetron HCl 4 mg 02/18/17 15:55 02/18/17 16:01 Zofran IVPUSH 02/18/17 15:56 4 mg ONETIME ONE Administration Ondansetron HCl 4 mg 02/18/17 18:11 02/18/17 18:26 Zofran IVPUSH 02/18/17 18:12 4 mg ONETIME ONE Administration - Radiology Interpretation Free Text/Narrative:: satellite project site monitor initially showed sinus tachycardia in the 100s with subsequent occasional pauses and improved heart rate to the 60s to 80s after administration of IV Lopressor Departure - Departure Time of Disposition: 18:45 Disposition: DC/Tfer to Acute Hospital 02 Reason for Transfer *Q: Other (See cardiology consultation as below) Condition: Fair Clinical Impression: CHF, Congestive heart failure, Chest pain, HTN, Essential hypertension, IDDM ( insulin dependent diabetes mellitus), Mixed anxiety depressive disorder, Peptic reflux disease, Hypomagnesemia, Dyslipidemia, Elevated INR COPD (chronic obstructive pulmonary disease) Qualifiers: COPD type: emphysema Emphysema type: panlobular Qualified Code(s): J43.1 - Panlobular emphysema Referrals: eJnni Barraza NP [Primary Care Provider] - Forms: ED Department Discharge, Interfacility Transfer EMTALA - Problem List & Annotations (1) Chest pain SNOMED Code(s): 53761632 Code(s): R07.9 - CHEST PAIN, UNSPECIFIED Status: Acute Priority: High Current Visit: Yes Onset Date: 02/18/17 Annotation/Comment:: Chest pain protocol initiated immediately upon patient's arrival in the emergency room. Note elevated INR as above with patient fortunately vomiting 3 of her 4 baby aspirin, which were given by the emissions engineer in route. Patient's chest pain continues to remain refractory to aggressive therapy, including IV fentanyl and IV nitroglycerin infusion. Persistent 10/10 chest discomfort at time of transfer. No direct evidence of aneurysm or bleeding by chest x-ray with patient having multiple previous CTAs of the chest as above. Initial telephone consultation with [facility] at 17:20 hours with subsequent return consultation at 17:[address] Morgan, hospitalist, and Dr. Beckford, lockstitch pocket setter, in that facility. They both agree to accept the patient for direct admission, further treatment, and stat echocardiogram on arrival with further workup depending on her clinical course. Note elevated INR, although dissecting aortic aneurysm remains a possibility despite chest x-ray findings as above. Ambulance transfer with emissions engineer accompaniment with no reversal of patient's Coumadin therapy for now secondary to EKG changes, etc. as above (2) CHF, Congestive heart failure SNOMED Code(s): 56948084 Code(s): I50.9 - HEART FAILURE, UNSPECIFIED Status: Chronic Priority: High Current Visit: Yes Annotation/Comment:: History of previous CHF, cardiomegaly, diastolic dysfunction, valvular disorder, etc. as above. Note new first degree AV block and conversion of previous incomplete right bundle branch block to complete right bundle branch block/bifascicular bundle-branch block with anterior wall ischemic changes. Mildly elevated BNP and secondary minor change of troponin I with otherwise negative cardiac enzymes, d-dimer, etc. Consider IV diuresis after admission (3) Elevated INR SNOMED Code(s): 041657724 Code(s): R79.1 - ABNORMAL COAGULATION PROFILE Status: Acute Priority: High Current Visit: Yes Onset Date: 02/18/17 Annotation/Comment:: Significantly elevated INR today with no reversal for now as above. (4) HTN, Essential hypertension SNOMED Code(s): 39370227 Code(s): I10 - ESSENTIAL (PRIMARY) HYPERTENSION Status: Chronic Priority : Medium Current Visit: Yes Annotation/Comment:: Blood pressures under excellent control in the emergency room (5) COPD (chronic obstructive pulmonary disease) SNOMED Code(s): 95639871 Code(s): J44.9 - CHRONIC OBSTRUCTIVE PULMONARY DISEASE, UNSPECIFIED Status : Chronic Priority: Medium Current Visit: Yes Annotation/Comment:: No recent fever or bronchitic type symptoms Qualifiers: COPD type: emphysema Emphysema type: panlobular Qualified Code(s): J43.1 - Panlobular emphysema (6) Dyslipidemia SNOMED Code(s): 832292344 Code(s): E78.5 - HYPERLIPIDEMIA, UNSPECIFIED Status: Chronic Priority: Medium Current Visit: Yes Annotation/Comment:: Not currently under therapy. 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 Consider glycosylated hemoglobin, possible sliding scale, etc. (9) Mixed anxiety depressive disorder SNOMED Code(s): 108325810 Code(s): F41.8 - OTHER SPECIFIED ANXIETY DISORDERS Status: Chronic Priority: Medium Current Visit: Yes Annotation/Comment:: Stable by patient history (10) Peptic reflux disease SNOMED Code(s): 78662431 Code(s): K21.9 - GASTRO-ESOPHAGEAL REFLUX DISEASE WITHOUT ESOPHAGITIS Status: Chronic Priority: Medium Current Visit: Yes Annotation/Comment:: Stable by patient history with high-dose IV Pepcid given in the emergency room as GI prophylaxis. No evidence of acute GI bleed or significant abdominal pain despite nausea and emesis with elevated INR. Gastroccult on arrival was negative. IV Zofran given once again immediately prior to discharge - Problem List Review Problem List Initiated/Reviewed/Updated: Yes - My Orders Last 24 Hours: My Active Orders 02/18/17 15:48 Chest 1V Frontal [CR] Stat 02/18/17 15:54 Cardiac Monitoring [RC] . DIRECTED EKG Documentation Completion [RC] ASDIRECTED Oxygen Therapy, ED [RC] CONTINUOUS Peripheral IV Care [RC] . DIRECTED Pulse Oximetry [RC] CONTINUOUS Up With Assistance [RC] PFP Vital Signs [RC] PFP Sodium Chloride 0.9% [Saline Flush] 10 ml FLUSH ASDIRECTED PRN Obtain Past Medical Record [OM.PC] Urgent Peripheral IV Insertion Adult [OM.PC] Stat Resuscitation Status Stat 02/18/17 16:30 Nitroglycerin/D5W [Nitroglycerin 25 MG/D5W 250 ML] 25 mg in 250 ml IV TITRATE Sodium Chloride 0.9% [Normal Saline] 1,000 ml IV ASDIRECTED 02/18/17 Breakfast Nothing per Oral Now Diet [DIET] - Assessment/Plan Last 24 Hours: My Active Orders 02/18/17 15:48 Chest 1V Frontal [CR] Stat 02/18/17 15:54 Cardiac Monitoring [RC] . DIRECTED EKG Documentation Completion [RC] ASDIRECTED Oxygen Therapy, ED [RC] CONTINUOUS Peripheral IV Care [RC] . DIRECTED Pulse Oximetry [RC] CONTINUOUS Up With Assistance [RC] PFP Vital Signs [RC] PFP Sodium Chloride 0.9% [Saline Flush] 10 ml FLUSH ASDIRECTED PRN Obtain Past Medical Record [OM.PC] Urgent Peripheral IV Insertion Adult [OM.PC] Stat Resuscitation Status Stat 02/18/17 16:30 Nitroglycerin/D5W [Nitroglycerin 25 MG/D5W 250 ML] 25 mg in 250 ml IV TITRATE Sodium Chloride 0.9% [Normal Saline] 1,000 ml IV ASDIRECTED 02/18/17 Breakfast Nothing per Oral Now Diet [DIET] Assessment:: As above Plan: As above. Extensive precautions were given to the patient and her parents, who are in agreement with the treatment plan. Ambulance transfer with emissions engineer accompaniment
[2017-02-18] MEDS ORDERED: Famotidine 20 MG/2 ML SDV IVPUSH ONE (15:54)
[2017-02-18] MEDS ORDERED: Metoprolol Tartrate 5 MG/5 ML SDV IVPUSH ONE (15:54)
[2017-02-18] MEDS ORDERED: Ondansetron 4 MG/2 ML SDV IVPUSH ONE ×2 (15:55→18:11)
[2017-02-18] MEDS ORDERED: fentaNYL 100 MCG/2 ML SDV IVPUSH ONE ×2 (15:56→17:19)
[2017-02-18] MEDS: Sodium Chloride 0.9% 10 ML Syringe FLUSH PRN ×3 (16:01→17:33)
[2017-02-18] MEDS ORDERED: Sodium Chloride 0.9% 1,000 ML IV SCH (16:30)
[2017-02-18] MEDS ORDERED: Nitroglycerin/D5W 25 MG/250 ML BOTTLE IV SCH (16:30)
[2017-02-18 17:00] LABS: CHLORIDE,CL 99 mmol/L (98-107); SODIUM,NA 137 mmol/L (136-145)
[2017-02-18 19:35] VITALS: BP 141/78
== END 2017-02-18 18:35 ==
LOC: LL.ED 15:37
DX: I11.0 Hypertensive heart disease with heart failure (principal); I50.9 Heart failure, unspecified; E11.42 Type 2 diabetes mellitus with diabetic polyneuropathy; F41.8 Other specified anxiety disorders; K21.9 Gastro-esophageal reflux disease without esophagitis; E83.42 Hypomagnesemia; E78.5 Hyperlipidemia, unspecified; R79.1 Abnormal coagulation profile; J43.1 Panlobular emphysema; Z79.4 Long term (current) use of insulin; Z79.01 Long term (current) use of anticoagulants; Z79.899 Other long term (current) drug therapy; Z88.8 Allergy status to other drugs, medicaments and biological substances
CPT/HCPCS: 36415; 71010; 80053; 82150; 82271; 82550; 82553; 83605; 83690; 83735; 83880; 84443; 84484; 84550; 85025; 85379; 85610; 85730; 93005; 96365; 96366; 96374; 96375; 99285; J2405; J3010; J7030; J7050; J3490; S0028

== ENCOUNTER 2018-08-03 15:25 | Observation (INO) | payer BC ==
[2018-08-03] MEDS ORDERED: Ondansetron 4 MG/2 ML SDV IVPUSH ONE (15:41)
[2018-08-03] MEDS ORDERED: Sodium Chloride 0.9% 1,000 ML IV ONE (15:43)
[2018-08-03 16:11] LABS: CHLORIDE,CL 97 mmol/L (98-107); SODIUM,NA 135 mmol/L (136-145)
[2018-08-03] MEDS ORDERED: Insulin Regular, Human 100 Units/ML 3 ML Vial IV ONE (16:12)
[2018-08-03] MEDS ORDERED: Promethazine 25 MG Tab PO PRN (18:32)
[2018-08-03] MEDS ORDERED: Loperamide 2 MG Tab PO ONE (18:33)
[2018-08-03] MEDS ORDERED: Insulin Regular, Human 100 Units/ML 3 ML Vial SUBCUT ONE (18:35)
--- NOTE | 2018-08-03 18:46 | EDM.PDOC ---
ED HPI GENERAL MEDICAL PROBLEM - General Chief Complaint: Abdominal Pain Stated Complaint: nausea/vomiting Time Seen by Provider: 08/03/18 15:41 Source of Information: Reports: Patient History Limitations: Reports: No Limitations - History of Present Illness INITIAL COMMENTS - FREE TEXT/NARRATIVE: Patient came to ER via EMS due to complaint of vomiting/diarrhea/abdominal discomfort that started yesterday. Thinks it is a stomach virus. Has not been checking her sugars(IDDM). Reports approx total of 6 episodes each of emesis and loose stools. No fevers. Denies other changes/symptoms. Not able to eat. Has had ice chips. - Related Data Allergies Allergy/AdvReac Type Severity Reaction Status Date / Time prochlorperazine edisylate Allergy Anxiety Verified 07/07/17 13:45 [From Compazine] prochlorperazine maleate Allergy Anxiety Verified 07/07/17 13:45 [From Compazine] sertraline HCl [From Zoloft] Allergy Difficulty Verified 07/07/17 13:45 Breathing mantoux Allergy Rash Uncoded 07/07/17 13:45 Home Meds: Home Meds Acetaminophen [Tylenol Extra Strength] 500 mg PO QID PRN 05/22/13 [History] Furosemide [Lasix] 10 mg PO DAILY PRN 05/22/13 [History] Insulin Detemir [Levemir] 25 unit SQ BID 05/22/13 [History] Methadone HCl 40 mg PO QID 05/22/13 [History] Potassium Chloride [Klor-Con M20] 20 meq PO DAILY 05/22/13 [History] hydrOXYzine pamoate [Vistaril] 50 mg PO Q6H PRN 09/07/13 [History] Pantoprazole 40 mg PO DAILY 02/08/15 [History] diphenhydrAMINE HCl [Diphenhydramine HCl] 25 mg PO TID PRN 02/08/15 [History] Amitriptyline [Elavil] 100 mg PO BEDTIME 05/08/15 [History] Docusate Sodium [Colace] 100 mg PO BID 05/08/15 [History] Insulin Aspart [NovoLOG] 5 unit SQ BID 05/08/15 [History] Warfarin [Coumadin] 2.5 mg PO SUTUWETHSA 05/08/15 [History] Warfarin [Coumadin] 5 mg PO MOFR 05/08/15 [History] Past Medical History HEENT History: Reports: Allergic Rhinitis, Cataract, Impaired Vision, Other ( See Below) Other HEENT History: Patient wears glasses; history of cataracts is no surgery to this point Cardiovascular History: Reports: Arrhythmia, Blood Clots/VTE/DVT, CAD, Heart Failure, Heart Murmur, High Cholesterol, Other (See Below) Other Cardiovascular History: Complete right bundle branch block, PVCs; severe left atrial enlargement with grade 1 diastolic dysfunction by echocardiogram with additional decreased ejection fraction of 45-50% and history of CHF; dyslipidemia; mild mitral valve insufficiency and aortic valve insufficiency by echocardiogram with additional moderate aortic valve stenosis; postoperative DVT of the right leg in December 2009 after panniculectomy with additional left- sided PE on 12/23/12 with current Coumadin therapy; previous history of positive antiphospholipid titer; Respiratory History: Reports: Bronchitis, Recurrent, COPD, Intubation, Previous , PE, Other (See Below) Other Respiratory History: PE as above; multiple benign bilateral pulmonary nodules by serial CT scans Gastrointestinal History: Reports: Cholelithiasis, Chronic Constipation, Diverticulosis, GERD Genitourinary History: Reports: Acute Renal Failure, Renal Calculus, Urinary Incontinence, UTI, Recurrent, Other (See Below) Other Genitourinary History: History of bilateral nephrolithiasis 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: Fibroids Musculoskeletal History: Reports: Amputation, Arthritis, Back Pain, Chronic, Fracture, Fibromyalgia, Neck Pain, Chronic, Osteoarthritis, Osteoporosis, SLE, Other (See Below) Other Musculoskeletal History: Fracture of digit #1 of the right foot; amputation of the toe as below Neurological History: Reports: Migraines, Neuropathy, Diabetic, Neuropathy, Peripheral, Other (See Below) Other Neuro History: Migraines as a child Psychiatric History: Reports: Anxiety, Depression Endocrine/Metabolic History: Reports: Diabetes, Type II, IDDM, Multinodular Thyroid, Obesity/BMI 30+, Osteopenia Hematologic History: Reports: Anemia, Anticoagulation Therapy, Blood Transfusion (s), Other (See Below) Immunologic History: Reports: None, SLE Oncologic (Cancer) History: Reports: None Dermatologic History: Reports: None, Venous Stasis Dermatitis - Infectious Disease History Infectious Disease History: Reports: MRSA - Past Surgical History Head Surgeries/Procedures: Reports: None HEENT Surgical History: Reports: Oral Surgery, Other (See Below) Other HEENT Surgeries/Procedures: Complete teeth extraction in 2005 with previous wisdom teeth extraction in her 20s Cardiovascular Surgical History: Reports: None Respiratory Surgical History: Reports: None GI Surgical History: Reports: Cholecystectomy, Colonoscopy, EGD, Other (See Below) Other GI Surgeries/Procedures: Laparoscopic cholecystectomy in 1998; panniculectomy in December 2009; colonoscopy in 2008 with EGD in the Female Surgical History: Reports: Cystoscopy, Lithotripsy/ESWL, Other (See Below) Other Female Surgeries/Procedures: Multiple previous bilateral lithotripsies with with last procedure on the right side in 1998; cystourethroscopy on 07/12/12 Endocrine Surgical History: Reports: None Neurological Surgical History: Reports: None Musculoskeletal Surgical History: Reports: Arthroscopic Knee, Arthroscopic Procedure, Other (See Below) Other Musculoskeletal Surgeries/Procedures:: 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; arthroscopic procedure of left knee in her early 40s Oncologic Surgical History: Reports: None Dermatological Surgical History: Reports: Other (See Below) - Past Imaging History Past Imaging History: Reports: Angiography (Negative heart catheterization at [facility] in [place] December 2012 by patient history), CAT Scan (Last CT of the brain on 05/13/16 with previous evaluation on 09/09/10; multiple previous CTAs of the chest using PE protocol with last evaluation on 04/20/16 with previous evaluations on 04/12/15, 02/08/15, 05/23/13, 01/01/13 and 12/24/12; CT of the abdomen and pelvis with contrast on 04/20/16, 02/08/15, 05/23/13, and 12/07/12 ; CT of the chest on 07/11/14), DEXA Scan (08/01/14), Mammogram (Last mammogram on 08/28/15), MRI (MRI of the lumbar spine on 04/15/15, 07/16/14 and 05/07/10), Stress Testing (Cardiolite stress test on 12/15/12 with ejection fraction of 65%), Ultrasound (Thyroid ultrasound on 04/20/16 and 01/30/15; renal ultrasound on ), Venous Doppler (Last venous Doppler study of Lower extremities bilaterally on 01/30/15 with previous evaluation of the right leg on 02/13/10) Social & Family History - Family History Family Medical History: Unobtainable Cardiac: Reports: CAD, High Cholesterol, Hypertension, NH, Stent, Other (See Below) Other Cardiac Family History: Maternal grandfather with fatal NH at age 62; paternal grandfather with fatal NH at age 72; father with PTCA/stent at age 83 without NH; hyperlipidemia in father; mother with hypertension GI: Reports: PUD, Other (See Below) Other GI Family History: Mother with ischemic colitis and peptic ulcer disease secondary to NSAIDs OBGYN: Reports: None Musculoskeletal: Reports: Fibromyalgia, Gout, Other (See Below) Other Musculoskeletal Family History: Maternal grandmother with gout; mother and sister with fibromyalgia Neurological: Reports: Alzheimers Disease, Dementia, TIA, Other (See Below) Other Neurological Family History: Father with TIAs; mother with borderline organic brain syndrome Psychiatric: Reports: Anxiety, Depression, Other (See Below) Other Psychiatric Family History: Mother with anxiety depression disorder Endocrine/Metabolic: Reports: Diabetes, type II, Hypothyroidism, Other (See Below) Other Endocrine/Metabolic Family History: Sister with IDDM, brother with AODM controlled with diet, father with hypothyroidism Hematologic: Reports: None Immunologic: Reports: None Dermatologic: Reports: None Oncologic: Reports: Skin, Other (See Below) Other Oncologic Family History: Father and paternal uncle with unknown type of skin cancer; oral cancer in her niece possibly secondary to tobacco fatal at age 31 - Living Situation & Occupation Living situation: Reports: Single, Alone Occupation: Disabled (Secondary to fibromyalgia since 1998) ED ROS GENERAL - Review of Systems Review Of Systems: See Below Constitutional: Reports: Malaise, Decreased Appetite. Denies: Fever, Chills, Weakness, Diaphoresis HEENT: Reports: No Symptoms Respiratory: Reports: No Symptoms Cardiovascular: Reports: No Symptoms GI/Abdominal: Reports: Abdominal Pain, Diarrhea, Decreased Appetite, Nausea, Vomiting. Denies: Black Stool, Bloody Stool, Constipation, Difficulty Swallowing, Distension, Hematemesis, Hematochezia, Melena : Reports: No Symptoms Musculoskeletal: Reports: No Symptoms (no acute changes from baseline) Skin: Reports: No Symptoms Neurological: Reports: No Symptoms Psychiatric: Reports: No Symptoms ED EXAM, GI/ABD - Physical Exam Exam: See Below Exam Limited By: No Limitations General Appearance: Alert, WD/WN, No Apparent Distress Eyes: Bilateral: Normal Appearance, EOMI Ears: Normal External Exam Nose: Normal Inspection Throat/Mouth: Normal Lips, Normal Voice, No Airway Compromise Head: Atraumatic, Normocephalic Neck: Supple, Non-Tender, Full Range of Motion Respiratory/Chest: No Respiratory Distress, Lungs Clear, Normal Breath Sounds, No Accessory Muscle Use Cardiovascular: Normal Peripheral Pulses, Regular Rate, Rhythm, Systolic Murmur GI/Abdominal Exam: Soft, Non-Tender, No Distention, Abnormal Bowel Sounds ( decreased throughout). No: Guarding, Rigid, Rebound, Tender (Female) Exam: Deferred Rectal (Female) Exam: Deferred Back Exam: No: CVA Tenderness (L), CVA Tenderness (R), Muscle Spasm Extremities: Normal Range of Motion, Non-Tender, Slow Capillary Refill Neurological: Alert, Oriented, Normal Cognition, Normal Gait Psychiatric: Normal Affect, Normal Mood Skin Exam: Warm, Dry, Intact, Normal Color Course - Orders/Labs/Meds Orders: Active Orders 24 hr Category Date Time Status Patient Status [ADT] Routine ADT 08/03/18 18:28 Active Accu Check [Blood Glucose Check, Bedside] [RC] ONETIME Care 08/03/18 18:25 Active Accu Check [Blood Glucose Check, Bedside] [RC] Care 08/03/18 18:30 Active QIDACANDBED Height and Weight [RC] UPON Care 08/03/18 18:28 Active Intake and Output [RC] QSHIFT Care 08/03/18 18:29 Active May Shower [RC] ASDIRECTED Care 08/03/18 18:28 Active Oxygen Therapy [RC] PRN Care 08/03/18 18:30 Active Pulse Oximetry [RC] PRN Care 08/03/18 18:30 Active Up ad Ghislaine [RC] ASDIRECTED Care 08/03/18 18:28 Active Vital Signs [RC] Q6HR Care 08/03/18 18:28 Active Clear Liquid Diet [DIET] Diet 08/03/18 Dinner Active Chest 2V [CR] Stat Exams 08/03/18 15:40 Taken BASIC METABOLIC PANEL,BMP [CHEM] AM Lab 08/04/18 05:15 Ordered CBC WITH AUTO DIFF [HEME] AM Lab 08/04/18 05:15 Ordered INR,PT,PROTHROMBIN TIME [COAG] AM Lab 08/04/18 05:11 Ordered UA W/MICROSCOPIC [URIN] Stat Lab 08/03/18 15:39 Ordered Insulin Regular, Human [HumuLIN R] Med 08/03/18 18:35 Once 10 unit SUBCUT ONETIME ONE Insulin Regular, Human [HumuLIN R] Med 08/04/18 07:30 Ordered See Protocol SUBCUT BIDAC Loperamide [Imodium AD] Med 08/03/18 18:33 Once 4 mg PO ONETIME ONE Promethazine [Phenergan] Med 08/03/18 18:32 Ordered 25 mg PO Q8H PRN Sodium Chloride 0.9% [Normal Saline] 1,000 ml Med 08/03/18 18:45 Ordered IV ASDIRECTED Code Status [Resuscitation Status] Routine Resus Stat 08/03/18 18:31 Ordered Medication Orders Sodium Chloride (Normal Saline) 1,000 mls @ 150 mls/hr IV ASDIRECTED ALEYAD Insulin Human Regular (Humulin R) 0 unit SUBCUT BIDAC ALEYDA; Protocol Insulin Human Regular (Humulin R) 10 unit SUBCUT ONETIME ONE; Protocol Stop: 08/03/18 18:36 Loperamide HCl (Imodium Ad) 4 mg PO ONETIME ONE Stop: 08/03/18 18:34 Promethazine HCl (Phenergan) 25 mg PO Q8H PRN PRN Reason: Nausea/Vomiting Labs: Laboratory Tests 08/03/18 08/03/18 08/03/18 Range/Units 15:53 15:53 18:31 WBC 7.7 (4.0-10.2) K/uL RBC 4.43 (3.77-5.09) M/uL Hgb 12.4 (11.7-15.5) g/dL Hct 37.3 (34.0-46.0) % MCV 84.2 (84.0-98.0) fL MCH 28.0 L (28.2-33.3) pg MCHC 33.2 (31.7-36.0) g/dL RDW 12.5 (11.2-14.1) % Plt Count 272 (150-350) K/uL Neut % (Auto) 83.8 H (45.0-80.0) % Lymph % (Auto) 9.1 L (10.0-50.0) % [place] % (Auto) 6.9 (2.0-14.0) % Eos % (Auto) 0.1 (0.0-5.0) % Baso % (Auto) 0.1 (0.0-2.0) % Neut # (Auto) 6.45 (1.40-7.00) K/uL Lymph # (Auto) 0.70 (0.50-3.50) K/uL [place] # (Auto) 0.53 (0.00-1.00) K/uL Eos # (Auto) 0.01 (0.00-0.50) K/uL Baso # (Auto) 0.01 (0.00-0.20) K/uL Sodium 135 L (136-145) mmol/L Potassium 4.8 (3.5-5.1) mmol/L Chloride 97 L (98-107) mmol/L Carbon Dioxide 28.1 (21.0-32.0) mmol/L BUN 49 H D (7-18) mg/dL Creatinine 1.48 H (0.51-1.17) mg/dL Est Cr Clr Drug Dosing TNP Estimated GFR (MDRD) 36 mL/min Glucose 652 H* (74-106) mg/dL POC Glucose 449 H* (65-110) mg/dl Calcium 9.5 (8.5-10.1) mg/dL Total Bilirubin 0.4 (0.2-1.0) mg/dL AST 10 L (15-37) U/L ALT 17 (12-78) U/L Alkaline Phosphatase 118 H (46-116) IU/L Total Protein 7.2 (6.4-8.2) g/dL Albumin 3.3 L (3.4-5.0) g/dL Meds: Medications Generic Name Dose Route Start Last Admin Trade Name Freq PRN Reason Stop Dose Admin Sodium Chloride 1,000 mls @ 150 mls/hr 08/03/18 18:45 Normal Saline IV ASDIRECTED ALEYDA Insulin Human Regular 0 unit 08/04/18 07:30 Humulin R SUBCUT BIDAC ALEYDA Protocol Insulin Human Regular 10 unit 08/03/18 18:35 Humulin R SUBCUT 08/03/18 18:36 ONETIME ONE Protocol Loperamide HCl 4 mg 08/03/18 18:33 Imodium Ad PO 08/03/18 18:34 ONETIME ONE Promethazine HCl 25 mg 08/03/18 18:32 Phenergan PO Q8H PRN Nausea/Vomiting Discontinued Medications Generic Name Dose Route Start Last Admin Trade Name Julita PRN Reason Stop Dose Admin Sodium Chloride 1,000 mls @ 999 mls/hr 08/03/18 15:43 08/03/18 16:19 Normal Saline IV 08/03/18 16:43 999 mls/hr ONETIME ONE Administration Insulin Human Regular 12 unit 08/03/18 16:12 08/03/18 16:47 Humulin R IV 08/03/18 16:13 12 units ONETIME ONE Administration Protocol Insulin Human Regular 10 unit 08/04/18 18:35 Humulin R SUBCUT 08/04/18 18:36 ONETIME ONE Protocol Ondansetron HCl 4 mg 08/03/18 15:41 08/03/18 15:53 Zofran IVPUSH 08/03/18 15:42 4 mg ONETIME ONE Administration - Radiology Interpretation Free Text/Narrative:: No obvious acute process noted on chest xray - Re-Assessments/Exams Free Text/Narrative Re-Assessment/Exam: 08/03/18 18:46 IV access obtained. Labs drawn. Zofran given. Nausea improved. IV fluids given. Viral gastroenteritis suspected. Blood sugar in 600s noted. IV insulin given. Patient admitted observation as she will need closer monitoring of blood glucose elevation secondary to the gastroenteritis. Patient stable and suitable for general supervision. Will continue IV fluids, clear liquid diet, and regular bedside glucose checks. Anticipate possible discharge home tomorrow if GI symptoms remain improved and patient able to tolerate food/PO fluids. Departure - Departure Time of Disposition: 17:30 Disposition: Refer to Observation Condition: Good Clinical Impression: Gastroenteritis, IDDM (insulin dependent diabetes mellitus) - Discharge Information *PRESCRIPTION DRUG MONITORING PROGRAM REVIEWED*: Not Applicable *COPY OF PRESCRIPTION DRUG MONITORING REPORT IN PATIENT MEG: Not Applicable Referrals: Jenni Barraza NP [Primary Care Provider] - - Problem List & Annotations (1) Gastroenteritis SNOMED Code(s): 19836867 Code(s): K52.9 - NONINFECTIVE GASTROENTERITIS AND COLITIS, UNSPECIFIED Status: Acute Priority: High Current Visit: Yes Onset Date: 08/02/18 Annotation/Comment:: No recent emesis/loose stools observed. 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 Sliding scale insulin initiated. Blood glucose levels improving. Patient admits to not checking blood sugars at home. - My Orders Last 24 Hours: My Active Orders 08/03/18 15:39 UA W/MICROSCOPIC [URIN] Stat 08/03/18 15:40 Chest 2V [CR] Stat 08/03/18 18:25 Accu Check [Blood Glucose Check, Bedside] [RC] ONETIME 08/03/18 18:28 Patient Status [ADT] Routine Height and Weight [RC] UPON June Shower [RC] ASDIRECTED Up ad Ghislaine [RC] ASDIRECTED Vital Signs [RC] Q6HR 08/03/18 18:29 Intake and Output [RC] QSHIFT 08/03/18 18:30 Accu Check [Blood Glucose Check, Bedside] [RC] QIDACANDBED Oxygen Therapy [RC] PRN Pulse Oximetry [RC] PRN 08/03/18 18:31 Code Status [Resuscitation Status] Routine 08/03/18 18:32 Promethazine [Phenergan] 25 mg PO Q8H PRN 08/03/18 18:33 Loperamide [Imodium AD] 4 mg PO ONETIME ONE 08/03/18 18:35 Insulin Regular, Human [HumuLIN R] 10 unit SUBCUT ONETIME ONE 08/03/18 18:45 Sodium Chloride 0.9% [Normal Saline] 1,000 ml IV ASDIRECTED 08/03/18 Dinner Clear Liquid Diet [DIET] 08/04/18 05:11 INR,PT,PROTHROMBIN TIME [COAG] AM 08/04/18 05:15 BASIC METABOLIC PANEL,BMP [CHEM] AM CBC WITH AUTO DIFF [HEME] AM 08/04/18 07:30 Insulin Regular, Human [HumuLIN R] See Protocol SUBCUT BIDAC - Assessment/Plan Admission H&P: Please use this note as an admission H&P Last 24 Hours: My Active Orders 08/03/18 15:39 UA W/MICROSCOPIC [URIN] Stat 08/03/18 15:40 Chest 2V [CR] Stat 08/03/18 18:25 Accu Check [Blood Glucose Check, Bedside] [RC] ONETIME 08/03/18 18:28 Patient Status [ADT] Routine Height and Weight [RC] UPON June Shower [RC] ASDIRECTED Up ad Ghislaine [RC] ASDIRECTED Vital Signs [RC] Q6HR 08/03/18 18:29 Intake and Output [RC] QSHIFT 08/03/18 18:30 Accu Check [Blood Glucose Check, Bedside] [RC] QIDACANDBED Oxygen Therapy [RC] PRN Pulse Oximetry [RC] PRN 08/03/18 18:31 Code Status [Resuscitation Status] Routine 08/03/18 18:32 Promethazine [Phenergan] 25 mg PO Q8H PRN 08/03/18 18:33 Loperamide [Imodium AD] 4 mg PO ONETIME ONE 08/03/18 18:35 Insulin Regular, Human [HumuLIN R] 10 unit SUBCUT ONETIME ONE 08/03/18 18:45 Sodium Chloride 0.9% [Normal Saline] 1,000 ml IV ASDIRECTED 08/03/18 Dinner Clear Liquid Diet [DIET] 08/04/18 05:11 INR,PT,PROTHROMBIN TIME [COAG] AM 08/04/18 05:15 BASIC METABOLIC PANEL,BMP [CHEM] AM CBC WITH AUTO DIFF [HEME] AM 08/04/18 07:30 Insulin Regular, Human [HumuLIN R] See Protocol SUBCUT BIDAC Assessment:: as above. Plan: as above.
[2018-08-03] MEDS ORDERED: Pantoprazole 40 MG Vial IVPUSH ONE (18:51)
[2018-08-03] MEDS: Sodium Chloride 0.9% 1,000 ML IV SCH (19:47)
[2018-08-03] MEDS: Methadone 10 MG Tab PO PRN (21:29)
[2018-08-03] MEDS: Acetaminophen 325 MG Tab PO PRN (21:49)
[2018-08-03] MEDS: Amitriptyline 25 MG Tab PO SCH (21:50)
[2018-08-04] MEDS: Sodium Chloride 0.9% 1,000 ML IV SCH ×3 (02:29→17:28)
[2018-08-04] MEDS ORDERED: cefTRIAXone 1 GM in Sodium Chloride 0.9% 100 ML IV ONE (06:44)
[2018-08-04] MEDS ORDERED: Sodium Chloride 0.9% 500 ML IV ONE ×2 (06:45→09:15)
[2018-08-04] MEDS: Methadone 10 MG Tab PO PRN ×2 (07:18→19:22)
[2018-08-04] MEDS: Insulin Glarg,Human.Rec.Analog 100 UNIT/ML ML SUBCUT SCH (07:25)
[2018-08-04] MEDS: Insulin Regular, Human 100 Units/ML 3 ML Vial SUBCUT SCH ×2 (07:26→17:31)
[2018-08-04 07:29] LABS: CHLORIDE,CL 104 mmol/L (98-107); SODIUM,NA 140 mmol/L (136-145)
[2018-08-04] MEDS ORDERED: Methadone 10 MG Tab PO PRN (12:40)
[2018-08-04] MEDS ORDERED: Acetaminophen 325 MG Tab PO PRN (12:40)
--- NOTE | 2018-08-04 12:51 | PCM.PN ---
- General Info Date of Service: 08/04/18 Admission Dx/Problem (Free Text): Admitted for evaluation and treatment of hyperglycemia, vomiting, diarrhea, and abdominal pain. Subjective Update: Feels fatigued but otherwise improved. Tolerating clear liquid diet. Functional Status: Reports: Pain Controlled, Tolerating Diet, Ambulating, Urinating. Denies: New Symptoms - Review of Systems General: Reports: Fatigue. Denies: Fever, Malaise, Chills, Night Sweats, Appetite HEENT: Reports: No Symptoms, Glasses Pulmonary: Reports: No Symptoms Cardiovascular: Reports: No Symptoms Gastrointestinal: Reports: Nausea (mild nausea earlier today). Denies: Abdominal Pain, Constipation, Diarrhea, Difficulty Swallowing, Vomiting Genitourinary: Reports: No Symptoms Musculoskeletal: Reports: No Symptoms Skin: Reports: No Symptoms Neurological: Reports: No Symptoms Psychiatric: Reports: No Symptoms - Patient Data Vitals - Most Recent: Last Vital Signs Temp 37.0 C 08/04/18 11:50 Pulse 85 08/04/18 11:50 Resp 16 08/04/18 11:50 BP 105/57 L 08/04/18 11:50 Pulse Ox 98 08/04/18 11:50 Weight - Most Recent: 68.946 kg I&O - Last 24 Hours: Intake & Output 08/03/18 08/04/18 08/04/18 22:59 06:59 14:59 Intake Total 1536 240 Output Total 200 Balance 1336 240 Lab Results Last 24 Hours: Laboratory Results - last 24 hr 08/03/18 08/03/18 08/03/18 Range/Units 15:53 15:53 18:31 WBC 7.7 (4.0-10.2) K/uL RBC 4.43 (3.77-5.09) M/uL Hgb 12.4 (11.7-15.5) g/dL Hct 37.3 (34.0-46.0) % MCV 84.2 (84.0-98.0) fL MCH 28.0 L (28.2-33.3) pg MCHC 33.2 (31.7-36.0) g/dL RDW 12.5 (11.2-14.1) % Plt Count 272 (150-350) K/uL Neut % (Auto) 83.8 H (45.0-80.0) % Lymph % (Auto) 9.1 L (10.0-50.0) % [place] % (Auto) 6.9 (2.0-14.0) % Eos % (Auto) 0.1 (0.0-5.0) % Baso % (Auto) 0.1 (0.0-2.0) % Neut # (Auto) 6.45 (1.40-7.00) K/uL Lymph # (Auto) 0.70 (0.50-3.50) K/uL [place] # (Auto) 0.53 (0.00-1.00) K/uL Eos # (Auto) 0.01 (0.00-0.50) K/uL Baso # (Auto) 0.01 (0.00-0.20) K/uL PT (9.5-12.0) SEC INR Sodium 135 L (136-145) mmol/L Potassium 4.8 (3.5-5.1) mmol/L Chloride 97 L (98-107) mmol/L Carbon Dioxide 28.1 (21.0-32.0) mmol/L BUN 49 H D (7-18) mg/dL Creatinine 1.48 H (0.51-1.17) mg/dL Est Cr Clr Drug Dosing TNP Estimated GFR (MDRD) 36 mL/min Glucose 652 H* (74-106) mg/dL POC Glucose 449 H* (65-110) mg/dl Calcium 9.5 (8.5-10.1) mg/dL Magnesium (1.8-2.4) mg/dL Total Bilirubin 0.4 (0.2-1.0) mg/dL AST 10 L (15-37) U/L ALT 17 (12-78) U/L Alkaline Phosphatase 118 H (46-116) IU/L Total Protein 7.2 (6.4-8.2) g/dL Albumin 3.3 L (3.4-5.0) g/dL Specimen Type Urine Color Urine Appearance Urine pH (5.0-9.0) Ur Specific [place] (1.005-1.030) Urine Protein (NEGATIVE) mg/dL Urine Glucose (UA) (NEGATIVE) mg/dL Urine Ketones (NEGATIVE) mg/dL Urine Occult Blood (NEGATIVE) Urine Nitrite (NEGATIVE) Urine Bilirubin (NEGATIVE) Urine Urobilinogen (0.2-1.0) E.U./dL Ur Leukocyte Esterase (NEGATIVE) Urine RBC /HPF Urine WBC /HPF Ur Epithelial Cells /LPF Urine Bacteria (NONE TO FEW) /HPF Urine Yeast (NEGATIVE) /HPF 08/03/18 08/04/18 08/04/18 Range/Units 20:43 05:50 06:48 WBC (4.0-10.2) K/uL RBC (3.77-5.09) M/uL Hgb (11.7-15.5) g/dL Hct (34.0-46.0) % MCV (84.0-98.0) fL MCH (28.2-33.3) pg MCHC (31.7-36.0) g/dL RDW (11.2-14.1) % Plt Count (150-350) K/uL Neut % (Auto) (45.0-80.0) % Lymph % (Auto) (10.0-50.0) % [place] % (Auto) (2.0-14.0) % Eos % (Auto) (0.0-5.0) % Baso % (Auto) (0.0-2.0) % Neut # (Auto) (1.40-7.00) K/uL Lymph # (Auto) (0.50-3.50) K/uL [place] # (Auto) (0.00-1.00) K/uL Eos # (Auto) (0.00-0.50) K/uL Baso # (Auto) (0.00-0.20) K/uL PT 24.9 H D (9.5-12.0) SEC INR 2.3 Sodium (136-145) mmol/L Potassium (3.5-5.1) mmol/L Chloride (98-107) mmol/L Carbon Dioxide (21.0-32.0) mmol/L BUN (7-18) mg/dL Creatinine (0.51-1.17) mg/dL Est Cr Clr Drug Dosing Estimated GFR (MDRD) mL/min Glucose (74-106) mg/dL POC Glucose 244 H (65-110) mg/dl Calcium (8.5-10.1) mg/dL Magnesium (1.8-2.4) mg/dL Total Bilirubin (0.2-1.0) mg/dL AST (15-37) U/L ALT (12-78) U/L Alkaline Phosphatase (46-116) IU/L Total Protein (6.4-8.2) g/dL Albumin (3.4-5.0) g/dL Specimen Type Urinvoid Urine Color Yellow Urine Appearance Slightly cloudy Urine pH 5.0 (5.0-9.0) Ur Specific [place] 1.025 (1.005-1.030) Urine Protein Trace H (NEGATIVE) mg/dL Urine Glucose (UA) >=1000 H (NEGATIVE) mg/dL Urine Ketones 15 H (NEGATIVE) mg/dL Urine Occult Blood Trace-lysed H (NEGATIVE) Urine Nitrite Negative (NEGATIVE) Urine Bilirubin Negative (NEGATIVE) Urine Urobilinogen 0.2 (0.2-1.0) E.U./dL Ur Leukocyte Esterase Small H (NEGATIVE) Urine RBC 0-5 /HPF Urine WBC 50-75 H /HPF Ur Epithelial Cells Few /LPF Urine Bacteria Many H (NONE TO FEW) /HPF Urine Yeast Rare H (NEGATIVE) /HPF 08/04/18 08/04/18 08/04/18 Range/Units 06:48 06:48 07:25 WBC 6.9 (4.0-10.2) K/uL RBC 4.01 (3.77-5.09) M/uL Hgb 11.3 L (11.7-15.5) g/dL Hct 33.5 L (34.0-46.0) % MCV 83.5 L (84.0-98.0) fL MCH 28.2 (28.2-33.3) pg MCHC 33.7 (31.7-36.0) g/dL RDW 12.5 (11.2-14.1) % Plt Count 225 (150-350) K/uL Neut % (Auto) 68.5 (45.0-80.0) % Lymph % (Auto) 25.3 (10.0-50.0) % [place] % (Auto) 4.5 (2.0-14.0) % Eos % (Auto) 1.3 (0.0-5.0) % Baso % (Auto) 0.4 (0.0-2.0) % Neut # (Auto) 4.74 (1.40-7.00) K/uL Lymph # (Auto) 1.75 (0.50-3.50) K/uL [place] # (Auto) 0.31 (0.00-1.00) K/uL Eos # (Auto) 0.09 (0.00-0.50) K/uL Baso # (Auto) 0.03 (0.00-0.20) K/uL PT (9.5-12.0) SEC INR Sodium 140 (136-145) mmol/L Potassium 3.7 (3.5-5.1) mmol/L Chloride 104 (98-107) mmol/L Carbon Dioxide 26.7 (21.0-32.0) mmol/L BUN 42 H (7-18) mg/dL Creatinine 1.12 (0.51-1.17) mg/dL Est Cr Clr Drug Dosing TNP Estimated GFR (MDRD) 49 mL/min Glucose 203 H (74-106) mg/dL POC Glucose 213 H (65-110) mg/dl Calcium 8.8 (8.5-10.1) mg/dL Magnesium 1.8 (1.8-2.4) mg/dL Total Bilirubin (0.2-1.0) mg/dL AST (15-37) U/L ALT (12-78) U/L Alkaline Phosphatase (46-116) IU/L Total Protein (6.4-8.2) g/dL Albumin (3.4-5.0) g/dL Specimen Type Urine Color Urine Appearance Urine pH (5.0-9.0) Ur Specific [place] (1.005-1.030) Urine Protein (NEGATIVE) mg/dL Urine Glucose (UA) (NEGATIVE) mg/dL Urine Ketones (NEGATIVE) mg/dL Urine Occult Blood (NEGATIVE) Urine Nitrite (NEGATIVE) Urine Bilirubin (NEGATIVE) Urine Urobilinogen (0.2-1.0) E.U./dL Ur Leukocyte Esterase (NEGATIVE) Urine RBC /HPF Urine WBC /HPF Ur Epithelial Cells /LPF Urine Bacteria (NONE TO FEW) /HPF Urine Yeast (NEGATIVE) /HPF 08/04/18 Range/Units 11:10 WBC (4.0-10.2) K/uL RBC (3.77-5.09) M/uL Hgb (11.7-15.5) g/dL Hct (34.0-46.0) % MCV (84.0-98.0) fL MCH (28.2-33.3) pg MCHC (31.7-36.0) g/dL RDW (11.2-14.1) % Plt Count (150-350) K/uL Neut % (Auto) (45.0-80.0) % Lymph % (Auto) (10.0-50.0) % [place] % (Auto) (2.0-14.0) % Eos % (Auto) (0.0-5.0) % Baso % (Auto) (0.0-2.0) % Neut # (Auto) (1.40-7.00) K/uL Lymph # (Auto) (0.50-3.50) K/uL [place] # (Auto) (0.00-1.00) K/uL Eos # (Auto) (0.00-0.50) K/uL Baso # (Auto) (0.00-0.20) K/uL PT (9.5-12.0) SEC INR Sodium (136-145) mmol/L Potassium (3.5-5.1) mmol/L Chloride (98-107) mmol/L Carbon Dioxide (21.0-32.0) mmol/L BUN (7-18) mg/dL Creatinine (0.51-1.17) mg/dL Est Cr Clr Drug Dosing Estimated GFR (MDRD) mL/min Glucose (74-106) mg/dL POC Glucose 130 H (65-110) mg/dl Calcium (8.5-10.1) mg/dL Magnesium (1.8-2.4) mg/dL Total Bilirubin (0.2-1.0) mg/dL AST (15-37) U/L ALT (12-78) U/L Alkaline Phosphatase (46-116) IU/L Total Protein (6.4-8.2) g/dL Albumin (3.4-5.0) g/dL Specimen Type Urine Color Urine Appearance Urine pH (5.0-9.0) Ur Specific [place] (1.005-1.030) Urine Protein (NEGATIVE) mg/dL Urine Glucose (UA) (NEGATIVE) mg/dL Urine Ketones (NEGATIVE) mg/dL Urine Occult Blood (NEGATIVE) Urine Nitrite (NEGATIVE) Urine Bilirubin (NEGATIVE) Urine Urobilinogen (0.2-1.0) E.U./dL Ur Leukocyte Esterase (NEGATIVE) Urine RBC /HPF Urine WBC /HPF Ur Epithelial Cells /LPF Urine Bacteria (NONE TO FEW) /HPF Urine Yeast (NEGATIVE) /HPF Med Orders - Current: Current Medications Acetaminophen (Tylenol) 650 mg PO TID PRN PRN Reason: Pain Last Admin: 08/03/18 21:49 Dose: 650 mg Acetaminophen (Tylenol) 650 mg PO TID PRN PRN Reason: Pain Amitriptyline HCl (Elavil) 100 mg PO BEDTIME [facility] Last Admin: 08/03/18 21:50 Dose: 100 mg Amitriptyline HCl (Elavil) 100 mg PO BEDTIME ALEYDA Sodium Chloride (Normal Saline) 1,000 mls @ 150 mls/hr IV ASDIRECTED [facility] Last Admin: 08/04/18 10:31 Dose: 150 mls/hr Ceftriaxone Sodium 1 gm/ (Sodium Chloride) 100 mls @ 200 mls/hr IV ONETIME ONE Stop: 08/05/18 07:29 Insulin Glargine (Lantus) 15 unit SUBCUT DAILY [facility] Last Admin: 08/04/18 07:25 Dose: 15 unit Insulin Human Regular (Humulin R) 0 unit SUBCUT BIDAC [facility]; Protocol Last Admin: 08/04/18 07:26 Dose: 4 unit Methadone HCl (Methadone) 40 mg PO TID PRN PRN Reason: Pain Last Admin: 08/04/18 07:18 Dose: 40 mg Methadone HCl (Methadone) 40 mg PO TID PRN PRN Reason: Pain Non-Formulary Medication (Insulin Aspart [Novolog]) 6 unit SUBCUT WITHMEALSANDBED [facility] Non-Formulary Medication (Warfarin) 1.5 mg PO BEDTIME [facility] Discontinued Medications Sodium Chloride (Normal Saline) 1,000 mls @ 999 mls/hr IV ONETIME ONE Stop: 08/03/18 16:43 Last Admin: 08/03/18 16:19 Dose: 999 mls/hr Ceftriaxone Sodium 1 gm/ (Sodium Chloride) 100 mls @ 200 mls/hr IV ONETIME ONE Stop: 08/04/18 07:13 Last Admin: 08/04/18 07:18 Dose: 200 mls/hr Sodium Chloride (Normal Saline) 500 mls @ 500 drops/hr IV BOLUS ONE Stop: 08/04/18 21:44 Last Admin: 08/04/18 07:18 Dose: 500 drops/hr Sodium Chloride (Normal Saline) 500 mls @ 500 mls/hr IV BOLUS ONE Stop: 08/04/18 10:14 Last Admin: 08/04/18 10:29 Dose: Not Given Insulin Human Regular (Humulin R) 12 unit IV ONETIME ONE; Protocol Stop: 08/03/18 16:13 Last Admin: 08/03/18 16:47 Dose: 12 units Insulin Human Regular (Humulin R) 10 unit SUBCUT ONETIME ONE; Protocol Stop: 08/04/18 18:36 Insulin Human Regular (Humulin R) 10 unit SUBCUT ONETIME ONE; Protocol Stop: 08/03/18 18:36 Last Admin: 08/03/18 19:36 Dose: 10 units Loperamide HCl (Imodium Ad) 4 mg PO ONETIME ONE Stop: 08/03/18 18:34 Last Admin: 08/03/18 19:38 Dose: 4 mg Ondansetron HCl (Zofran) 4 mg IVPUSH ONETIME ONE Stop: 08/03/18 15:42 Last Admin: 08/03/18 15:53 Dose: 4 mg Pantoprazole Sodium (Protonix Iv) 40 mg IVPUSH ONETIME ONE Stop: 08/03/18 18:52 Last Admin: 08/03/18 19:40 Dose: 40 mg Promethazine HCl (Phenergan) 25 mg PO Q8H PRN PRN Reason: Nausea/Vomiting Last Admin: 08/04/18 07:17 Dose: 25 mg Warfarin Sodium (Coumadin) 1.5 mg PO BEDTIME ONE Stop: 08/03/18 21:06 Last Admin: 08/03/18 21:29 Dose: 1.5 mg - Exam Quality Assessment: DVT Prophylaxis (on coumadin) General: Alert, Oriented, Cooperative, No Acute Distress HEENT: Pupils Equal, Pupils Reactive, EOMI, Mucous Membr. Moist/[place] Neck: Supple Lungs: Clear to Auscultation, Normal Respiratory Effort Cardiovascular: Regular Rate, Regular Rhythm, Murmurs (systolic murmur) GI/Abdominal Exam: Soft, Non-Tender, No Distention, Abnormal Bowel Sounds ( decreased bowel sounds throughout) (Female) Exam: Deferred Back Exam: No: CVA Tenderness (L), CVA Tenderness (R) Extremities: Non-Tender, Normal Capillary Refill Skin: Warm, Dry Neurological: No New Focal Deficit Psy/Mental Status: Alert, Normal Affect, Normal Mood - Problem List & Annotations (1) Gastroenteritis SNOMED Code(s): 84137993 Code(s): K52.9 - NONINFECTIVE GASTROENTERITIS AND COLITIS, UNSPECIFIED Status: Acute Priority: High Current Visit: Yes Onset Date: 08/02/18 Annotation/Comment:: No recent emesis/loose stools observed. Uncertain if previous nausea/emesis/loose stools related to viral enteritis or secondary to newly diagnosed UTI. (2) UTI (urinary tract infection) SNOMED Code(s): 71902794 Code(s): N39.0 - URINARY TRACT INFECTION, SITE NOT SPECIFIED Status: Acute Priority: High Current Visit: No Qualifiers: Urinary tract infection type: acute cystitis Hematuria presence: without hematuria Qualified Code(s): N30.00 - Acute cystitis without hematuria Annotation/Comment:: Patient able to void and provide urine specimen earlier this morning. Positive for UTI. Rocephin ordered. UC ordered. (3) IDDM (insulin dependent diabetes mellitus) SNOMED Code(s): 28300042 Code(s): E11.9 - TYPE 2 DIABETES MELLITUS WITHOUT COMPLICATIONS; Z79.4 - PENITENTIARY (CURRENT) USE OF INSULIN Status: Chronic Priority: Medium Current Visit: Yes Annotation/Comment:: Hyperglycemia secondary to gastroenteritis suspected. Sliding scale insulin initiated. Blood glucose levels improving. Patient admits to not checking blood sugars at home. (4) Dehydration SNOMED Code(s): 63629689 Code(s): E86.0 - DEHYDRATION Status: Acute Priority: High Current Visit : No Onset Date: 05/08/15 Annotation/Comment:: IV fluid replacement initiated in ER. - Problem List Review Problem List Initiated/Reviewed/Updated: Yes - My Orders Last 24 Hours: My Active Orders 08/03/18 15:40 Chest 2V [CR] Stat 08/03/18 18:28 Patient Status [ADT] Routine May Shower [RC] ASDIRECTED Up ad Ghislaine [RC] ASDIRECTED Vital Signs [RC] Q6HR 08/03/18 18:29 Intake and Output [RC] QSHIFT 08/03/18 18:30 Accu Check [Blood Glucose Check, Bedside] [RC] QIDACANDBED Oxygen Therapy [RC] .PRN Pulse Oximetry [RC] .PRN 08/03/18 18:31 Code Status [Resuscitation Status] Routine 08/03/18 18:45 Sodium Chloride 0.9% [Normal Saline] 1,000 ml IV ASDIRECTED 08/03/18 21:06 Acetaminophen [Tylenol] 650 mg PO TID PRN 08/03/18 21:07 Methadone 40 mg PO TID PRN 08/03/18 21:45 Amitriptyline [Elavil] 100 mg PO BEDTIME 08/03/18 Dinner Clear Liquid Diet [DIET] 08/04/18 05:50 CULTURE URINE [] Routine 08/04/18 07:30 Insulin Regular, Human [HumuLIN R] See Protocol SUBCUT BIDAC 08/04/18 08:00 Insulin Glarg,Human.Rec.Analog [LantUS] 15 unit SUBCUT DAILY 08/04/18 12:40 Acetaminophen [Tylenol] 650 mg PO TID PRN Methadone 40 mg PO TID PRN 08/04/18 18:00 Insulin Aspart [NovoLOG] 6 unit SUBCUT WITHMEALSANDBED 08/04/18 20:00 Amitriptyline [Elavil] 100 mg PO BEDTIME Warfarin 1.5 mg PO BEDTIME 08/05/18 07:00 cefTRIAXone [Rocephin] 1 gm Sodium Chloride 0.9% [Normal Saline] 100 ml IV ONETIME - Assessment Assessment:: Nausea/emesis/loose stools, abdominal discomfort, improved. UTI. Pending urine culture. Improved blood sugars. - Plan Plan:: Will continue Rocephin IV and advance diet as tolerated. If patient continues to improve plan discharge home tomorrow on oral antibiotics.
[2018-08-04] MEDS: Insulin Lispro 100 Units/ML 3 ML Vial SUBCUT SCH ×2 (17:35→19:26)
[2018-08-04] MEDS ORDERED: Insulin Regular, Human 100 Units/ML 3 ML Vial SUBCUT ONE (18:35)
[2018-08-04] MEDS: Amitriptyline 25 MG Tab PO SCH (19:19)
[2018-08-04] MEDS: Acetaminophen 325 MG Tab PO PRN (19:21)
[2018-08-04] MEDS ORDERED: Amitriptyline 25 MG Tab PO SCH (20:00)
[2018-08-05] MEDS: Sodium Chloride 0.9% 1,000 ML IV SCH ×2 (00:14→07:07)
[2018-08-05] MEDS: Acetaminophen 325 MG Tab PO PRN (06:04)
[2018-08-05] MEDS: Methadone 10 MG Tab PO PRN (06:04)
[2018-08-05 06:18] VITALS: BP 124/69
[2018-08-05] MEDS ORDERED: cefTRIAXone 1 GM in Sodium Chloride 0.9% 100 ML IV ONE (07:00)
[2018-08-05] MEDS: Insulin Glarg,Human.Rec.Analog 100 UNIT/ML ML SUBCUT SCH (07:04)
[2018-08-05] MEDS: Insulin Lispro 100 Units/ML 3 ML Vial SUBCUT SCH ×2 (07:05→11:55)
[2018-08-05] MEDS: Insulin Regular, Human 100 Units/ML 3 ML Vial SUBCUT SCH (07:10)
--- NOTE | 2018-08-05 13:39 | PCM.DCSUM1 ---
Discharge Summary - Hospital Course Brief History: admitted for treatment of emesis/diarrhea, hyperglycemia. Found to have UTI after admission. Diagnosis: Stroke: No - Discharge Data Discharge Date: 08/05/18 Discharge Disposition: Home, Self-Care 01 Condition: Good - Discharge Diagnosis/Problem(s) (1) Gastroenteritis SNOMED Code(s): 15938988 ICD Code: K52.9 - NONINFECTIVE GASTROENTERITIS AND COLITIS, UNSPECIFIED Status: Acute Priority: High Current Visit: Yes Onset Date: 08/02/18 Problem Details: No recent emesis/loose stools observed. Uncertain if previous nausea/emesis/loose stools related to viral enteritis or secondary to newly diagnosed UTI. (2) UTI (urinary tract infection) SNOMED Code(s): 50947191 ICD Code: N39.0 - URINARY TRACT INFECTION, SITE NOT SPECIFIED Status: Acute Priority: High Current Visit: No Problem Details: Patient able to void and provide urine specimen earlier this morning. Positive for UTI. Rocephin while inpatient. UC ordered/mixed brooke found. Discharged on Macrobid Qualifiers: Urinary tract infection type: acute cystitis Hematuria presence: without hematuria Qualified Code(s): N30.00 - Acute cystitis without hematuria (3) IDDM (insulin dependent diabetes mellitus) SNOMED Code(s): 82143622 ICD Code: E11.9 - TYPE 2 DIABETES MELLITUS WITHOUT COMPLICATIONS; Z79.4 - [employer] (CURRENT) USE OF INSULIN Status: Chronic Priority: Medium Current Visit: Yes Problem Details: Hyperglycemia secondary to gastroenteritis and/or UTI suspected. Sliding scale insulin initiated. Blood glucose levels improved quickly. (4) Dehydration SNOMED Code(s): 83722046 ICD Code: E86.0 - DEHYDRATION Status: Acute Priority: High Current Visit: No Onset Date: 05/08/15 Problem Details: IV fluid replacement initiated in ER. - Patient Summary/Data Complications: None Hospital Course: Rapid improvement noted regarding nausea/emesis/loose stools as well as with hyperglycemia. Diet advanced. Hydration status improved. Received two doses of Rocephin to treat UTI diagnosed after admission. Patient unable to void until early the following moring. Urine culture grew out mixed brooke. Discharged home on Macrobid. To follow up as needed. - Patient Instructions Diet: Usual Diet as Tolerated Activity: As Tolerated Driving: May Drive Today Showering/Bathing: May Shower Notify Provider of: Fever Other/Special Instructions: Follow up as needed. Get urine rechecked next Wednesday or Wednesday. - Discharge Plan *PRESCRIPTION DRUG MONITORING PROGRAM REVIEWED*: Not Applicable *COPY OF PRESCRIPTION DRUG MONITORING REPORT IN PATIENT MEG: Not Applicable Prescriptions/Med Rec: Nitrofurantoin Monohyd/M-Cryst [Macrobid 100 mg Capsule] 100 mg PO BID #14 capsule Home Medications: Home Meds Insulin Detemir [Levemir] 15 unit SQ DAILY 05/22/13 [History] Methadone HCl 40 mg PO TID PRN 05/22/13 [History] hydrOXYzine pamoate [Vistaril] 50 mg PO Q6H PRN 09/07/13 [History] Amitriptyline [Elavil] 100 mg PO BEDTIME 05/08/15 [History] Docusate Sodium [Colace] 100 mg PO BID PRN 05/08/15 [History] Insulin Aspart [NovoLOG] 6 unit SQ BIDMEALS 05/08/15 [History] Acetaminophen [Tylenol] 650 mg PO TID PRN 08/03/18 [History] Esomeprazole Magnesium [Nexium] 40 mg PO DAILY 08/03/18 [History] Insulin Aspart [NovoLOG] 6 unit SUBCUT WITHMEALSANDBED 08/03/18 [History] Warfarin [Coumadin] 1.5 mg PO BEDTIME 08/03/18 [History] Nitrofurantoin Monohyd/M-Cryst [Macrobid 100 mg Capsule] 100 mg PO BID #14 capsule 08/04/18 [Rx] Patient Handouts: Ondansetron injection, Dehydration, Adult, [id number] Forms: ED Department Discharge Referrals: Jenni Barraza NP [Primary Care Provider] - - Discharge Summary/Plan Comment DC Time >30 min.: No - General Info Date of Service: 08/05/18 Admission Dx/Problem (Free Text: Admitted for evaluation and treatment of hyperglycemia, vomiting, diarrhea, and abdominal pain. Subjective Update: Would like to go home. Feels much better. Eating, drinking, voiding well. Functional Status: Reports: Pain Controlled, Tolerating Diet, Ambulating, Urinating. Denies: New Symptoms - Review of Systems General: Reports: No Symptoms HEENT: Reports: No Symptoms Pulmonary: Reports: No Symptoms Cardiovascular: Reports: No Symptoms Gastrointestinal: Reports: No Symptoms Genitourinary: Reports: No Symptoms Musculoskeletal: Reports: No Symptoms (no change from baseline) Skin: Reports: No Symptoms Neurological: Reports: No Symptoms Psychiatric: Reports: No Symptoms - Patient Data Vitals - Most Recent: Last Vital Signs Temp 37.2 C 08/05/18 06:00 Pulse 83 08/05/18 06:00 Resp 17 08/05/18 06:00 BP 124/69 08/05/18 06:00 Pulse Ox 95 08/05/18 06:00 Weight - Most Recent: 68.946 kg I&O - Last 24 hours: Intake & Output 08/04/18 08/05/18 08/05/18 22:59 06:59 14:59 Intake Total 500 950 Output Total 300 500 400 Balance 200 -500 550 Lab Results - Last 24 hrs: Laboratory Results - last 24 hr 08/04/18 08/04/18 08/05/18 Range/Units 17:05 19:25 06:14 POC Glucose 117 H 122 H 128 H (65-110) mg/dl 08/05/18 Range/Units 11:27 POC Glucose 207 H (65-110) mg/dl USHA Results - Last 24 hrs: Microbiology 08/04/18 05:50 Urine Culture - Final Urine, Bladder MIXED BROOKE SUGGESTIVE OF CONTAMINATION. Med Orders - Current: Current Medications Acetaminophen (Tylenol) 650 mg PO TID PRN PRN Reason: Pain Last Admin: 08/05/18 06:04 Dose: 650 mg Acetaminophen (Tylenol) 650 mg PO TID PRN PRN Reason: Pain Amitriptyline HCl (Elavil) 100 mg PO BEDTIME [facility] Last Admin: 08/04/18 19:19 Dose: 100 mg Sodium Chloride (Normal Saline) 1,000 mls @ 150 mls/hr IV ASDIRECTED [facility] Last Admin: 08/05/18 07:07 Dose: 150 mls/hr Insulin Glargine (Lantus) 15 unit SUBCUT DAILY [facility] Last Admin: 08/05/18 07:04 Dose: 15 unit Insulin Human Lispro (Humalog) 6 unit SUBCUT WITHMEALSANDBED [facility] Last Admin: 08/05/18 11:55 Dose: 6 units Insulin Human Regular (Humulin R) 0 unit SUBCUT BIDAC [facility]; Protocol Last Admin: 08/05/18 07:10 Dose: Not Given Methadone HCl (Methadone) 40 mg PO TID PRN PRN Reason: Pain Last Admin: 08/05/18 06:04 Dose: 40 mg Warfarin Sodium (Coumadin) 1.5 mg PO BEDTIME ALEYDA Last Admin: 08/04/18 19:18 Dose: 1.5 mg Discontinued Medications Sodium Chloride (Normal Saline) 1,000 mls @ 999 mls/hr IV ONETIME ONE Stop: 08/03/18 16:43 Last Admin: 08/03/18 16:19 Dose: 999 mls/hr Ceftriaxone Sodium 1 gm/ (Sodium Chloride) 100 mls @ 200 mls/hr IV ONETIME ONE Stop: 08/04/18 07:13 Last Admin: 08/04/18 07:18 Dose: 200 mls/hr Sodium Chloride (Normal Saline) 500 mls @ 500 drops/hr IV BOLUS ONE Stop: 08/04/18 21:44 Last Admin: 08/04/18 07:18 Dose: 500 drops/hr Sodium Chloride (Normal Saline) 500 mls @ 500 mls/hr IV BOLUS ONE Stop: 08/04/18 10:14 Last Admin: 08/04/18 10:29 Dose: Not Given Ceftriaxone Sodium 1 gm/ (Sodium Chloride) 100 mls @ 200 mls/hr IV ONETIME ONE Stop: 08/05/18 07:29 Last Admin: 08/05/18 06:06 Dose: 200 mls/hr Insulin Human Regular (Humulin R) 12 unit IV ONETIME ONE; Protocol Stop: 08/03/18 16:13 Last Admin: 08/03/18 16:47 Dose: 12 units Insulin Human Regular (Humulin R) 10 unit SUBCUT ONETIME ONE; Protocol Stop: 08/04/18 18:36 Insulin Human Regular (Humulin R) 10 unit SUBCUT ONETIME ONE; Protocol Stop: 08/03/18 18:36 Last Admin: 08/03/18 19:36 Dose: 10 units Loperamide HCl (Imodium Ad) 4 mg PO ONETIME ONE Stop: 08/03/18 18:34 Last Admin: 08/03/18 19:38 Dose: 4 mg Ondansetron HCl (Zofran) 4 mg IVPUSH ONETIME ONE Stop: 08/03/18 15:42 Last Admin: 08/03/18 15:53 Dose: 4 mg Pantoprazole Sodium (Protonix Iv) 40 mg IVPUSH ONETIME ONE Stop: 08/03/18 18:52 Last Admin: 08/03/18 19:40 Dose: 40 mg Promethazine HCl (Phenergan) 25 mg PO Q8H PRN PRN Reason: Nausea/Vomiting Last Admin: 08/04/18 07:17 Dose: 25 mg Warfarin Sodium (Coumadin) 1.5 mg PO BEDTIME ONE Stop: 08/03/18 21:06 Last Admin: 08/03/18 21:29 Dose: 1.5 mg - Exam General: Reports: Alert, Oriented, Cooperative, No Acute Distress HEENT: Reports: Pupils Equal, Pupils Reactive, EOMI, Mucous Membr. Moist/[place] Neck: Reports: Supple Lungs: Reports: Normal Respiratory Effort Cardiovascular: Reports: Regular Rhythm GI/Abdominal Exam: Soft (Female) Exam: Deferred Rectal (Female) Exam: Deferred Skin: Reports: Warm, Dry Neurological: Reports: No New Focal Deficit Psy/Mental Status: Reports: Alert, Normal Affect, Normal Mood
== END 2018-08-05 13:20 | disposition home or self-care (01) ==
LOC: LL.ED 15:25 → SUPCPDRO 15:25 → LL.MS 17:00
PROVIDERS: ADMIT Emergency Medicine; ATTEND Emergency Medicine
DX: K52.9 Noninfective gastroenteritis and colitis, unspecified (principal); E11.65 Type 2 diabetes mellitus with hyperglycemia; N30.00 Acute cystitis without hematuria; E86.0 Dehydration; J44.9 Chronic obstructive pulmonary disease, unspecified; I50.9 Heart failure, unspecified; I08.0 Rheumatic disorders of both mitral and aortic valves; I25.10 Atherosclerotic heart disease of native coronary artery without angina pectoris; E78.00 Pure hypercholesterolemia, unspecified; E66.9 Obesity, unspecified; Z68.31 Body mass index [BMI] 31.0-31.9, adult; D64.9 Anemia, unspecified; Z79.4 Long term (current) use of insulin; Z79.01 Long term (current) use of anticoagulants; Z79.899 Other long term (current) drug therapy; Z88.8 Allergy status to other drugs, medicaments and biological substances; Z98.890 Other specified postprocedural states
CPT/HCPCS: 36415; 71046; 80048; 80053; 81001; 82962; 83735; 85025; 85610; 87086; A9270; C9113; J0696; J1815; J2405; J7030; J7040; J7050